=== PATIENT | female | born 1975 | race Caucasian/White ===

== ENCOUNTER 2020-12-09 09:47 | Outpatient (REF) | payer BC, SELFPAY ==
--- NOTE | ~2020-12-09 | MM_ITS ---
EXAMINATION: MM SCREENING DIGITAL BREAST TOMOSYNTHESIS, BILATERAL CLINICAL INFORMATION: Screening. Asymptomatic. The lifetime risk of breast cancer based on the Tyrer-Cuzick Model is 11%. COMPARISON: Mammography: 08/16/2018 (baseline) TECHNIQUE: Digital breast tomosynthesis is performed in both the craniocaudal and mediolateral oblique views along with computer-aided detection (CAD). Synthesized 2D images are generated from the tomosynthesis. FINDINGS: The breasts are heterogeneously dense, which may obscure small masses (ACR BI-RADS breast composition Category c). There are no significant masses, abnormal calcifications, or other abnormalities. There is intramammary node again noted posterior upper outer right breast. The bilateral axilla and skin contours are unremarkable. There are scattered punctate benign calcifications in the breasts. No significant changes. MM/MM tomosynthesis screening BI IMPRESSION: There are no significant changes from prior study. ASSESSMENT: BI-RADS 2: Benign RECOMMENDATION: Routine annual mammography screening. This patient's information was entered into a reminder system with a target due date for their next mammogram.
== END 2020-12-09 09:48 | disposition home or self-care (01) ==
LOC: HO.MAMMO 09:47
PROVIDERS: PCP Internal Medicine; Visit Provider Internal Medicine
DX: Z12.31 Encounter for screening mammogram for malignant neoplasm of breast (principal)
CPT/HCPCS: 77063; 77067

== ENCOUNTER 2021-03-07 10:42 | Outpatient (REF) | payer BC, SELFPAY ==
[2021-03-09 17:31] LABS: Rubella IgG Antibody 1.89 Index
== END 2021-03-07 10:43 | disposition home or self-care (01) ==
LOC: HO.HMGCLDS 10:42
PROVIDERS: PCP Internal Medicine; Visit Provider Internal Medicine
DX: Z01.84 Encounter for antibody response examination (principal)
CPT/HCPCS: 36415; 86735; 86762; 86765

== ENCOUNTER 2021-08-12 09:55 | Outpatient (REF) | payer BC, SELFPAY ==
[2021-08-12 10:43] LABS: COVID-19 Test Negative (Negative)
== END 2021-08-12 09:56 | disposition home or self-care (01) ==
LOC: HO.LAB 09:55
PROVIDERS: Visit Provider Internal Medicine
DX: Z20.822 Contact with and (suspected) exposure to COVID-19 (principal)
CPT/HCPCS: 36415; 87635; C9803

== ENCOUNTER → 2021-09-17 15:13 | Outpatient (BNVA) | payer BC, SELFPAY | PROVIDERS: PCP Internal Medicine; Visit Provider Surgery Vascular Surgery ==

== ENCOUNTER 2021-10-08 10:28 | Outpatient (REF) | payer BC, SELFPAY ==
--- NOTE | ~2021-10-08 | US_ITS ---
EXAMINATION: US LOWER EXTREMITY VENOUS (REFLUX EXAM), BILATERAL CLINICAL INDICATION: This a 46-year-old female with venous insufficiency and varicose veins. COMPARISON: None. TECHNIQUE: Color flow triplex imaging and compression Doppler was performed to evaluate both the deep and the superficial systems bilaterally. To evaluate the superficial system, the examination was performed in the upright position. Color-flow Doppler ultrasound and compression ultrasound were utilized. In addition, maneuvers were utilized to demonstrate reflux. FINDINGS: 1. DEEP VENOUS ULTRASOUND OF THE RIGHT LOWER EXTREMITY: Common Femoral Vein: Compressible, normal respiratory variation and augmented flow. Femoral vein: Compressible, normal color flow but with reflux of 892 ms. Popliteal Vein: Compressible, normal augmentation. Deep Reflux: There is reflux in the mid femoral vein. There is no evidence of a Cortez's cyst. 2. SUPERFICIAL ULTRASOUND WITH DOPPLER OF RIGHT LOWER EXTREMITY: GREAT SAPHENOUS VEIN: Saphenofemoral Junction: 0.5 cm. There is no reflux. Mid Thigh: 0.3 cm Above Knee: 0.3 cm. There is no reflux. Below Knee: 0.3 cm. The reflux time is 3400 ms. Mid Calf: 0.2 cm. There is no reflux. Ankle: 0.2 cm GSV REFLUX: There is only isolated reflux below the knee. There is no reflux at the saphenofemoral junction. DUPLICATED GREAT SAPHENOUS VEIN: None SMALL SAPHENOUS VEIN: Proximal: 0.2 cm Distal: 0.2 cm SSV REFLUX: No evidence of reflux. VEIN OF GIACOMINI: None Imaged. PERFORATORS: None Imaged VARICOSITIES: None Imaged 3. DEEP VENOUS ULTRASOUND OF THE LEFT LOWER EXTREMITY: Common Femoral Vein: Compressible, normal respiratory variation and augmented flow. Femoral Vein: Compressible, normal color flow and augmentation. Popliteal Vein: Compressible, normal augmentation. Deep Reflux: There is no evidence of reflux in the deep system in either the common femoral vein or the popliteal vein. There is no evidence of a Cortez's cyst. 4. SUPERFICIAL ULTRASOUND WITH DOPPLER OF LEFT LOWER EXTREMITY: GREAT SAPHENOUS VEIN: Saphenofemoral Junction: 0.5 cm. There is no reflux at the saphenofemoral junction. Mid Thigh: 0.3 cm. The reflux time is 1280 ms. Above Knee: 0.1 cm. There is no reflux. Below Knee: 0.1 cm Mid Calf: 0.1 cm Ankle: 0.1 cm GSV REFLUX: There is no reflux at the saphenofemoral junction. There is isolated reflux in the mid thigh. DUPLICATED GREAT SAPHENOUS VEIN: None SMALL SAPHENOUS VEIN: Proximal: 0.5 cm. There is no reflux at the junction. Distal: 0.3 cm. There is reflux of 3000 148 ms. SSV REFLUX: There is isolated distal reflux. There is not reflux at the junction. VEIN OF GIACOMINI: None Imaged. PERFORATORS: There are 0.2 cm mid calf perforators with a reflux time of 1620 ms. VARICOSITIES: There are 0.4 cm proximal thigh varicose veins with reflux time of 996 ms. There are 0.3 cm distal thigh varicose veins with greater than 3 seconds of reflux. US/US venous duplex LE BI IMPRESSION: 1. There is a patent right great saphenous vein without reflux at the saphenofemoral junction. There is isolated reflux at the knee. 2. There is a patent right small saphenous vein without reflux. 3. There is isolated reflux in the deep venous system in the mid right femoral vein. 4. There is a patent left great saphenous vein without reflux at the saphenofemoral junction. There is isolated reflux in the mid thigh but not below this level. 5. There is a patent left small saphenous vein without reflux at the junction. Reflux is seen in the mid calf and distal. 6. There are left thigh varicose veins measuring 0.4 cm and 0.3 cm with reflux.
== END 2021-10-08 10:29 | disposition home or self-care (01) ==
LOC: HO.US 10:28
PROVIDERS: Visit Provider Surgery Vascular Surgery
DX: I83.12 Varicose veins of left lower extremity with inflammation (principal)
CPT/HCPCS: 93970

== ENCOUNTER → 2021-10-13 15:43 | Outpatient (BNVA) | payer BC, SELFPAY | PROVIDERS: PCP Internal Medicine; Visit Provider Surgery Vascular Surgery ==

== ENCOUNTER → 2021-11-06 12:30 | Outpatient (BNVA) | payer BC, SELFPAY | PROVIDERS: PCP Internal Medicine; Visit Provider Surgery Vascular Surgery | DX: I83.12 Varicose veins of left lower extremity with inflammation (principal) | CPT/HCPCS: 36475 ==

== ENCOUNTER 2021-11-10 08:26 | Outpatient (REF) | payer BC, SELFPAY ==
--- NOTE | ~2021-11-10 | US_ITS ---
EXAMINATION: US VENOUS ULTRASOUND WITH DOPPLER LOWER EXTREMITY, LEFT CLINICAL INFORMATION: Left leg pain. COMPARISON: None. TECHNIQUE: Ultrasound of the deep veins is performed from the hip to the calf with compression sonography and color and pulse Doppler assessment. Spectral analysis with color-flow imaging is performed. FINDINGS: There is a thrombus visualized in the small superficial vein 5-6 cm in the calf region. The deep venous system including the left common femoral, superficial femoral, popliteal, posterior tibial and peroneal veins are widely patent. US/US venous duplex LE LT IMPRESSION: Clot visualized within the left small suprapatellar vein the calf region measuring 5 to 6 cm in length. There is no DVT in the left lower leg.
== END 2021-11-10 08:27 | disposition home or self-care (01) ==
LOC: HO.US 08:26
PROVIDERS: Visit Provider Surgery Vascular Surgery
DX: M79.605 Pain in left leg (principal)
CPT/HCPCS: 93971

== ENCOUNTER → 2021-11-19 15:43 | Outpatient (BNVA) | payer BC, SELFPAY | PROVIDERS: PCP Internal Medicine; Visit Provider Surgery Vascular Surgery ==

== ENCOUNTER 2022-06-26 15:42 | Emergency (ER) | payer BC, SELFPAY ==
[2022-06-26 15:51] VITALS: BP 138/82; PULSE 83; RESP 18; TEMP 37.1; O2SAT 96; BMI 23.6
--- NOTE | 2022-06-26 19:35 | ED.ASTHMA ---
HPI - Asthma General Chief Complaint: Asthma Stated Complaint: chest pain, difficulty breathing, asthma Time Seen by Provider: 06/26/22 18:59 Source: patient Mode of arrival: ambulatory Limitations: no limitations History of Present Illness HPI Narrative: 46-year-old female who presents emergency department for evaluation of fever, cough, chest pain, shortness of breath and dyspnea on exertion. Patient states that approximately 1 week prior she developed a fever of 100.3. She states that 2 days prior she developed a cough which is productive of thick dark sputum with no blood in the sputum. She also states that over the last 2 days she has been having a pressure-like sensation in her right chest. She points to her right anterior chest when she describes his pain, the pain is moderate intensity, the pain is improved with coughing and breathing. She states she does feel short of breath and has dyspnea on exertion. The patient has asthma and she states that her symptoms are relieved when she uses her albuterol and her Advair. Patient states she has had multiple episodes of pneumonia in the past whenever she has pneumonia she gets right-sided chest pain. She states that she has had intermittent fever, rhinorrhea, no sore throat, no nausea vomiting or diarrhea, no abdominal pain. She has felt fatigued. She denied myalgias arthralgias. She has had 3- COVID-19 test at home. She states she has received 3 COVID-19 Pfizer vaccinations. complaint: asthma attack Onset (ago): day(s) (2) Severity: moderate Context: recent URI Associated symptoms: productive cough, fever and chest pain Related Data Current Asthma Therapy: inhaled bronchodilator and inhaled steroid Home Medications Medication Instructions Recorded Confirmed cetirizine 10 mg tablet (Zyrtec) 10 mg PO DAILY PRN 09/14/21 09/14/21 Previous Rx's Medication Instructions Recorded albuterol sulfate 90 mcg/actuation 2 puff PO Q6H PRN shortness of 06/02/21 aerosol inhaler breath or wheezing #8.5 ea fluticasone 250 mcg-salmeterol 50 1 ea PO BID #180 caps 09/14/21 mcg/dose blistr powdr for inhalation (Advair Diskus) amoxicillin 500 mg capsule 1,000 mg PO TID 5 days #30 caps 06/26/22 azithromycin 250 mg tablet See Rx Instructions PO .COMPLEX #6 06/26/22 (Zithromax Z-Rolan) tabs prednisone 20 mg tablet 40 mg PO DAILY 5 days #10 tabs 06/26/22 Allergies Allergy/AdvReac Type Severity Reaction Status Date / Time Seasonal Allergies Allergy Mild mild Verified 11/19/21 15:45 Review of Systems Review of Systems: Yes all other systems are reviewed and are negative FORMERLY [facility] Past Medical History Medical History Mild intermittent asthma Varicose veins of both lower extremities with pain Surgical History No pertinent past surgical history Family History Family History Father Substance use disorder Social History Social History Housing: House Patient Tobacco Use Status: Never used Tobacco e-Cigarette/Vaping Use: Never Used Advance Directives: No Advance Directives Information Provided: Yes service: No Current occupational status: employed Physical Exam Vital Signs: Vital Signs: Last Vital Signs Temp 98.8 F 06/26/22 15:51 Pulse 83 06/26/22 15:51 Resp 18 06/26/22 15:51 BP 138/82 06/26/22 15:51 Pulse Ox 96 06/26/22 15:51 O2 Del Method 06/26/22 15:51 BMI result Body Mass Index 23.6 Const: General: cooperative and no acute distress Orientation/consciousness: oriented to person and oriented to place Limitations: no limitations HEENT: Head: Yes normal to inspection, Yes normocephalic and Yes atraumatic Ears: external ears normal General nose exam: Normal external nose present Face and sinus: Yes normal facial exam Mouth: Normal oral and palatal mucosa present Throat: Yes posterior oropharynx normal Eyes: General: appearance normal, both eyes and all related structures Pupils: Equal, round and reactive pupils present Neck: Neck: Yes normal visual inspection, Yes no lymphadenopathy, Yes trachea midline and Yes supple Chest: Chest palpation & inspection: normal inspection of the chest and tenderness (Right anterior chest wall, mild) Resp: Effort & Inspection: normal respiratory effort and able to speak in complete sentences Auscultation: wheezes (Wheezing at bases at end expiration) Cardio: Rate: regular rate Rhythm: regular rhythm Heart sounds: S1 normal heart sound present, S2 normal heart sound present and no murmurs GI: Inspection: Yes normal to inspection Palpation (GI): Soft to palpation, nontender and no guarding Auscultation: normal bowel sounds : General: Yes no CVA tenderness Back/Spine/Pelvis: Back: no CVA tenderness Skin: General skin exam: no rashes or lesions noted Neuro: General: oriented to person and oriented to place Cranial nerves: Yes CN's II-XII intact bilaterally and Yes Equal, round and reactive pupils present Cognition (Neuro): normal cognition Motor exam (neuro): 5/5 motor strength present throughout Extrem: General: Yes normal to inspection Psych: Appearance: grossly normal Speech and movement: Normal speech and movement present Affect: normal affect Attitude: cooperative Thought process: Normal thought process present Thought content: Normal thought content present Course Course Course Narrative: 46-year-old female who presents emergency department for evaluation of fever x1 week, productive cough x2 days, right-sided chest pain x2 days, shortness of breath, dyspnea exertion and fatigue. The patient does have a history of asthma and has been using her albuterol and Advair with some improvement her symptoms. Patient has had similar presentations in the past which she has had pneumonia. Patient's vital signs were normal lung exam did reveal right-sided chest wall tenderness and wheezing at the end of expiration. The patient's chest x-ray is consistent with a right middle lobe pneumonia. The patient will be treated with amoxicillin x5 days, Zithromax Z-Rolan and prednisone. I did tell the patient is important she follow up with a primary care doctor in 2 weeks to days sure that she is better and that she should return if her symptoms get worse. Discharge Plan Discharge Clinical Impression: Pneumonia, Asthma exacerbation Patient Disposition: Home, Self-Care Instructions: Pneumonia (ED), Asthma (ED) Additional Instructions: Your lung exam was normal with only some slight wheezing at the end of expiration. Your O2 saturation on room air was normal at 96%, this is reassuring. Your chest x-ray revealed a very subtle right middle lobe pneumonia. Take amoxicillin 500 mg pills, 2 pills every 8 hours for 5 days. Take Zithromax (azithromycin) Z-Rolan as prescribed. Day 1 take 2 pills, each day after that take 1 pill for total of 5 days. This medication states in your system for 7-10 days and continues to work despite only taking it for 5 days. Take prednisone 20 mg pills, 2 pills once a day for 5 days. While you are taking prednisone, do not take any NSAIDs (Motrin, Advil, ibuprofen, Aleve, naproxen). Follow-up with your doctor in 2 days. Please return to the emergency department if your symptoms get worse or if you develop any symptoms that are concerning to you. Prescriptions: New amoxicillin 500 mg capsule 1,000 mg PO TID 5 Days Qty: 30 0RF azithromycin [Zithromax Z-Rolan] 250 mg tablet See Rx Instructions .ROUTE .COMPLEX Qty: 6 0RF Rx Instructions: take 500 mg today (day 1), then 250 mg for 4 days (days 2-5) prednisone 20 mg tablet 40 mg PO DAILY 5 Days Qty: 10 0RF No Action albuterol sulfate 90 mcg/actuation HFA aerosol inhaler 2 puff PO Q6H PRN (Reason: shortness of breath or wheezing) Qty: 8.5 6RF cetirizine [Zyrtec] 10 mg tablet 10 mg PO DAILY PRN fluticasone propion-salmeterol [Advair Diskus] 250-50 mcg/dose blister with device 1 ea PO BID Qty: 180 2RF
== END 2022-06-26 20:09 | disposition home or self-care (01) ==
PROVIDERS: Emergency Provider Emergency Medicine Emergency Medical Services
DX: J18.9 Pneumonia, unspecified organism (principal); J45.901 Unspecified asthma with (acute) exacerbation
CPT/HCPCS: 71045; 99282; 99283

== ENCOUNTER 2022-07-09 12:31 | Outpatient (REF) | payer BC, SELFPAY ==
--- NOTE | ~2022-07-09 | XR_ITS ---
EXAMINATION: XR CHEST 2 VIEW CLINICAL INFORMATION: Cough COMPARISON: 06/26/2022 TECHNIQUE: PA and lateral views of the chest obtained. FINDINGS: There is new atelectasis or pneumonia in the medial right lower lobe, focally obscuring the right hemidiaphragm. The previously seen patchy opacities in the right midlung zone have improved. The left lung is clear. The cardiomediastinal silhouette is stable. XR/XR chest 2V IMPRESSION: 1. New right lower lobe atelectasis or pneumonia; follow-up is recommended to confirm clearing.
== END 2022-07-09 12:32 | disposition home or self-care (01) ==
LOC: HO.HMGCLDS 12:31
PROVIDERS: PCP Internal Medicine
DX: R05.9 Cough, unspecified (principal)
CPT/HCPCS: 71046

== ENCOUNTER 2022-07-14 09:02 | Outpatient (REF) | payer BC, SELFPAY ==
[2022-07-14 11:27] LABS: MANUAL DIFF FLAG NO
[2022-07-14 11:34] LABS: Basophils Absolute Auto 0.1 X10*3/uL (0.0-0.2); Basophils Percent Auto 1.2 % (0-2); Eosinophils Absolute Auto 0.5 X10*3/uL (0.0-0.4); Eosinophils Percent Auto 7.6 % (0-4); Hematocrit 36.4 % (37.0-47.0); Hemoglobin 11.6 g/dl (12.0-16.0); Imm Gran Abs Auto 0.03 X10*3/uL (0.00-0.03); Imm Gran Pct Auto 0.5 % (0.0-0.4); Lymphocytes Absolute Auto 1.3 X10*3/uL (1.2-4.9); Lymphocytes Percent Auto 20.5 % (20-40); Mean Corpuscular HGB Conc 31.9 g/dl (31.0-35.0); Mean Corpuscular Hemoglobin 27.4 pg (27.0-33.0); Mean Corpuscular Volume 85.8 fL (80.0-98.0); Mean Platelet Volume 10.4 fL (9.4-12.3); Monocytes Absolute Auto 0.5 X10*3/uL (0.1-1.2); Monocytes Percent Auto 7.9 % (2-11); Neutrophils Absolute Auto 4.1 x10*3/uL (2.0-8.3); Neutrophils Percent Auto 62.3 % (45-73); Platelet Count 390 X10*3/uL (160-400); Red Blood Count 4.24 X10*6/uL (4.20-5.50); Red Cell Distribution Width 14.1 % (11.0-16.0); White Blood Count 6.5 X10*3/uL (4.8-10.8)
== END 2022-07-14 09:03 | disposition home or self-care (01) ==
LOC: HO.HMGCLDS 09:02
PROVIDERS: PCP Internal Medicine; Visit Provider Internal Medicine
DX: R06.00 Dyspnea, unspecified (principal); R06.89 Other abnormalities of breathing; Z87.01 Personal history of pneumonia (recurrent)
CPT/HCPCS: 36415; 85025

== ENCOUNTER 2022-07-26 13:31 | Outpatient (REF) | payer BC, SELFPAY ==
--- NOTE | ~2022-07-26 | CT_ITS ---
EXAMINATION: HRCT CHEST WITHOUT CONTRAST CLINICAL INFORMATION: Dyspnea COMPARISON: None TECHNIQUE: Multidetector volumetric CT imaging of the chest was obtained noncontrast. Axial 1.5 mm slices were obtained. Sagittal and coronal reformations were obtained. Axial MIP images were also created and reviewed. This CT examination was performed using dose optimization techniques as appropriate, variously including the following: *Automated exposure control *Adjustment of mA and/or kV according to patient size (this includes techniques or standardized protocols for targeted exams where dose is matched to indication/reason for exam; i.e. extremities or head) *Use of iterative reconstruction technique TOTAL EXAM DLP: 120 mGy-cm. FINDINGS: LUNGS / PLEURA: Diffuse mild cylindrical bronchiectasis. Bronchial wall thickening and scattered endobronchial secretions present in the lower lungs bilaterally, associated with tree-in-bud nodular opacities. To a lesser extent, there are also tree-in-bud nodular opacities in the inferolateral aspect of the right upper lobe. There is an 8.8 x 6.6 mm nodule along the axial interstitium in the right lower lobe. There is an adjacent 11.1 x 7.1 mm nodule along the axial interstitium right lower lobe. There is also 9.7 x 7.1 mm subpleural nodule in the medial basal segment of the right lower lobe. There is a 3.4 mm nodule anteroinferior right upper lobe. No generalized subpleural reticulation, honeycombing, architectural distortion, traction bronchiectasis. No generalized groundglass disease. Central airways are patent. No pleural effusion or pneumothorax. MEDIASTINUM / SHAYAN: Mild cardiomegaly. No pericardial effusion.. Great vessels normal caliber. No lymphadenopathy. No significant coronary calcifications. Imaged thyroid gland unremarkable. CHEST WALL / AXILLA: Unremarkable. UPPER ABDOMEN: Included portions grossly unremarkable allowing for limitations in technique. OSSEOUS STRUCTURES: No acute or suspicious osseous abnormalities.. CT/CT chest wo con - High Res IMPRESSION: * No evidence of pulmonary fibrosis. * Diffuse mild cylindrical bronchiectasis with lower lung predominating bronchial thickening and endobronchial secretions. These are associated with tree-in-bud nodular opacities in the lower lobes bilaterally and to lesser extent right upper lobe compatible with an airway-based infectious process. * There are a a few associated nodular opacities in the right lower lobe favored to be infectious/inflammatory in nature, however follow-up will be required. The largest nodule measures 9.4 mm in diameter. Fleischner Society guidelines recommend a follow-up CT chest in 3 months.
== END 2022-07-26 13:32 | disposition home or self-care (01) ==
LOC: HO.CT 13:31
PROVIDERS: PCP Internal Medicine; Visit Provider Internal Medicine
DX: R06.00 Dyspnea, unspecified (principal); R06.89 Other abnormalities of breathing; R93.89 Abnormal findings on diagnostic imaging of other specified body structures; Z87.01 Personal history of pneumonia (recurrent)
CPT/HCPCS: 71250

== ENCOUNTER 2022-09-06 07:55 | Outpatient (REF) | payer BC, SELFPAY ==
--- NOTE | 2022-09-06 09:34 | PFT_ITS ---
FLOWS: FEV1 97% of predicted at 3.31 L. FVC 99% of predicted at 4.23 L. FEV1 to FVC ratio of 0.78. No bronchodilator response except in small to medium airways. LUNG VOLUMES: Total lung capacity 112% of predicted at 6.51 L. Residual volume 119% of predicted at 2.34 L. Slow vital capacity 108% of predicted at 4.17 L. Expiratory reserve volume 85% of predicted at 1.12 L. Diffusion capacity is normal. IMPRESSION: No obstructive or restrictive ventilatory defect. No bronchodilator response except in small to medium airways. Otherwise normal pulmonary function test. MD SUZAN Matias/MODL / [id number]
== END 2022-09-06 07:56 | disposition home or self-care (01) ==
LOC: HO.RESP 07:55
PROVIDERS: PCP Internal Medicine; Visit Provider Internal Medicine
DX: J45.20 Mild intermittent asthma, uncomplicated (principal); R06.09 Other forms of dyspnea; J47.9 Bronchiectasis, uncomplicated
CPT/HCPCS: 94060; 94727; 94729

== ENCOUNTER → 2022-09-23 13:56 | Outpatient (BNVA) | payer BC, SELFPAY | PROVIDERS: PCP Internal Medicine; Visit Provider Internal Medicine | DX: Z13.89 Encounter for screening for other disorder (principal) ==

== ENCOUNTER → 2023-01-24 15:02 | Outpatient (BNVA) | payer BC, SELFPAY | PROVIDERS: PCP Internal Medicine; Visit Provider Internal Medicine ==

== ENCOUNTER 2023-05-31 15:12 | Emergency (ER) | payer BC, SELFPAY ==
--- NOTE | ~2023-05-31 | CT_ITS ---
EXAMINATION: CT ANGIOGRAM OF THE CHEST WITH AND WITHOUT CONTRAST (CT PULMONARY ANGIOGRAM FOR PE) CLINICAL INFORMATION: Reason for Exam shortness of breath COMPARISON: Previous chest x-ray from earlier the same day and chest CT July 2022 TECHNIQUE: Prior to contrast administration, noncontrast localization images were obtained. Subsequently, multidetector volumetric imaging was performed from the thoracic inlet to below the diaphragms following the administration of 65 mL Omnipaque 350 intravenous contrast. No contrast reaction reported Sagittal, coronal, and MIP oblique sagittal reformatted images were obtained on the CT workstation, uploaded to PACS, and reviewed. This CT examination was performed using dose optimization techniques as appropriate, variously including the following: *Automated exposure control *Adjustment of mA and/or kV according to patient size (this includes techniques or standardized protocols for targeted exams where dose is matched to indication/reason for exam; i.e. extremities or head) *Use of iterative reconstruction technique Total exam dose-length product 217 mGy-cm FINDINGS: QUALITY OF STUDY/CONTRAST BOLUS: Satisfactory. PULMONARY ARTERIES: No pulmonary emboli. THORACIC AORTA: No aneurysm. LUNG: Bilateral lower lobe bronchiectasis. Bilateral lower lobe airspace disease and nodular opacities suggestive of pneumonia. This appears increased from July 2022 exam. Some of these changes may be chronic. PLEURA: No pleural effusion or pneumothorax. MEDIASTINUM: Normal heart size. No pericardial effusion. Small bilateral hilar and mediastinal lymph nodes. Prominent thymic tissue for age. This is similar-appearing to July 2022 exam.. No evidence of septal bowing or right heart strain. CORONARY ARTERY CALCIFICATION: None visualized on this study. CHEST WALL/AXILLA: No axillary or internal mammary lymphadenopathy. OSSEOUS STRUCTURES: No acute or suspicious osseous abnormality. UPPER ABDOMEN: Stable 2 cm low-attenuation liver lesion high in the right lobe probably representing a cyst. No reflux of contrast into the hepatic veins to suggest elevated right heart pressures. CT/CT angio chest PE protocol IMPRESSION: No evidence of pulmonary embolism. Bilateral lower lobe bronchiectasis, consolidation and nodular opacities probably representing pneumonia. Some of these changes may be chronic. Prominent thymic tissue for age similar to previous exam. VTE: negative
--- NOTE | ~2023-05-31 | XR_ITS ---
EXAMINATION: XR CHEST CLINICAL INFORMATION: Shortness of breath COMPARISON: 07/09/2022 TECHNIQUE: Frontal view of the chest was obtained. FINDINGS: Lungs are hyperaerated. Underlying fibrotic change noted with improved aeration now seen in the right midlung and right base. Acute infiltrates are not seen. Heart and pulmonary vessels are normal. No pleural effusion. XR/XR chest 1V IMPRESSION: Hyperaeration. No active disease.
--- NOTE | 2023-05-31 15:28 | ED.GENADULT ---
HPI - General Adult General Chief complaint: Dyspnea Stated complaint: SOB, fever Time Seen by Provider: 05/31/23 16:05 Source: patient, RN notes reviewed and old records reviewed Mode of arrival: ambulatory Limitations: no limitations History of Present Illness HPI narrative: 47-year-old female with past medical history significant for asthma, bronchiectasis presents for evaluation of shortness of breath. Patient reports shortness of breath for the last couple of days. She reports that she had a fever as high as 102 earlier today She did not take any Motrin or Tylenol. She reports productive cough as well. Denies any chest pain She reports that she called her [employer] office and was referred to the ER She follows with Dr. Fabian [facility] [employer] Home Medications Medication Instructions Recorded Confirmed loratadine 10 mg tablet (Claritin) 10 mg PO DAILY 07/09/22 07/09/22 Previous Rx's Medication Instructions Recorded albuterol sulfate 90 mcg/actuation 2 puff PO Q6H PRN shortness of 06/02/21 aerosol inhaler breath or wheezing #8.5 ea fluticasone 250 mcg-salmeterol 50 1 ea PO BID #180 caps 08/23/22 mcg/dose blistr powdr for inhalation (Advair Diskus) amoxicillin 875 mg-potassium 1 tab PO Q12H #14 tabs 05/31/23 clavulanate 125 mg tablet azithromycin 250 mg tablet See Rx Instructions PO .COMPLEX #6 05/31/23 tabs prednisone 20 mg tablet 40 mg (2 x 20 mg) PO DAILY #10 tabs 05/31/23 Allergies Allergy/AdvReac Type Severity Reaction Status Date / Time Seasonal Allergies Allergy Mild mild Verified 01/24/23 15:28 Review of Systems Constitutional: Constitutional: Reports body ache(s), Reports chills, Reports fever(s) and Denies headache(s) ENT: Denies headache(s) Cardiovascular: Cardiovascular: Denies chest pain and Reports dyspnea Respiratory: Respiratory: Reports chest congestion, Reports cough, Reports dyspnea and Reports wheezing Gastrointestinal: Gastrointestinal: Denies abdominal pain, Denies nausea and Denies vomiting Musculoskeletal: Musculoskeletal: Denies back pain Integumentary/Breasts: Skin/Breast: Denies rash Neurologic: Denies headache(s) Allergic/Immunologic: Allergic/Immunologic: Reports wheezing PMFSH Past Medical History Medical History (Updated 05/31/23 @ 16:29 by Ted Manjarrez) Allergic rhinitis Bronchial asthma Dyspnea on exertion Bronchiectasis Dyspnea and respiratory abnormalities Varicose veins of both lower extremities with pain Mild intermittent asthma Surgical History No pertinent past surgical history Family History Family History Father Substance use disorder Social History Social History Housing: House Patient Tobacco Use Status: Never used Tobacco Smoked in Last 30 Days: No e-Cigarette/Vaping Use: Never Used Use of substances other than those prescribed or required for medical reasons: No Advance Directives: No Advance Directives Information Provided: No service: No Current occupational status: employed Cognitive needs: No Hearing needs: No Vision needs: Yes Physical Exam ED Vital Signs: Vital Signs - 24 hr 05/31/23 15:29 05/31/23 16:06 05/31/23 18:00 Temperature 98.4 F Pulse Rate 122 H 113 H Respiratory Rate 24 H 26 H Blood Pressure 139/76 Pulse Oximetry 99 98 Oxygen Delivery Method Room Air Room Air BMI result Body Mass Index 21.8 Const General: healthy appearing, comfortable, no acute distress, alert and awake Nutritional Appearance: well nourished Orientation/consciousness: patient oriented x3 HENMT Head: Yes normocephalic and Yes atraumatic Eyes Eyelids: Yes eyelids normal Conjunctivae: conjunctivae normal Sclerae: sclerae normal Corneas: corneas normal Pupils: Equal, round and reactive pupils present EOM: EOMs intact bilaterally Neck Neck: Yes full ROM Resp Effort & Inspection: normal respiratory effort, able to speak in complete sentences and not labored Auscultation: not clear to auscultation bilaterally and wheezes lower bilaterally Cardio Rhythm: regular rhythm GI Inspection: No distended Palpation (GI): Soft to palpation, not firm, nontender, no guarding and not rigid Auscultation: normoactive bowel sounds Skin General skin exam: elasticity normal Neuro General: patient oriented x3 Cranial nerves: Yes Equal, round and reactive pupils present and Yes Bilaterally intact EOM present Cognition (Neuro): normal cognition Extrem Other: Moving all extremities well without any obvious deformities Course Course Course Narrative: RME: 47yo F w/PMHx bronchiectasis, asthma, c/o cough x2 weeks and SOB & fever Tmax 102 x today. denies taking antipyretic. Follows w/D. Judith, [place] anxious, +bibasilar rhonchi, tachycardic EKG, Labs, CXR, COVID testing & Bronch Protocol ordered Full HPI, ROS and PE to be performed by primary ED provider. Medications Administered Discontinued Medications Generic Name Dose Route Start Last Admin Trade Name Freq PRN Reason Stop Dose Admin Albuterol Sulfate 2.5 mg/ 5 mg 05/31/23 15:58 05/31/23 16:06 Albuterol Sulfate 2.5 mg INHALE 05/31/23 15:59 5 mg ONCE ONE Administration Sodium Chloride 1,000 mls @ 999 mls/hr 05/31/23 16:30 05/31/23 19:04 Ns IV 05/31/23 17:30 Infused .Q1H1M DEBBIE Infusion Iohexol 65 ml 05/31/23 18:01 05/31/23 18:02 Iohexol 350 Mg/Ml 100 Ml Infus..Btl IV 05/31/23 18:02 65 ml ONCE ONE Administration Methylprednisolone Sodium Succinate 125 mg 05/31/23 16:18 05/31/23 17:58 Methylprednisolone Sod Succ 125 Mg/2 Ml Vial IVPUSH 05/31/23 16:19 125 mg ONCE ONE Administration Medical Decision Making Medical Decision Making [facility] Narrative: 47-year-old female with history of bronchiectasis and asthma presents for evaluation of shortness of breath vitals a fever. At the time of my evaluation she has received a 5 mg albuterol treatment. She remains to have bibasilar rhonchi. Her heart rate is as high as 140 after the albuterol treatment. If she is afebrile on arrival her white count is 15.3k. Chest x-ray does not show any infiltrate. Given the reported fevers, tachycardia, tachypnea, white count with a CT angiography. Patient treated with IV fluids, SoluMedrol in addition to bronchodilators Differential Diagnosis Differential Diagnoses: The differential diagnosis associated with the presentation includes Pneumonia PE Acute asthma exacerbation Viral syndrome COVID-19 Admission/Observation Consideration of admission/observation: Escalation of care including admission/observation considered Lab Data [facility] Lab Attestation statement: I reviewed the patient's lab results. Leukocytosis to 15.3 K with a left shift it is possibly infectious etiology. No significant anemia, normal electrolytes, normal renal function. 05/31/23 15:54 05/31/23 15:54 Labs: Lab Results 05/31/23 Range/Units 15:54 WBC 15.3 H (4.8-10.8) X10*3/uL RBC 4.30 (4.20-5.50) X10*6/uL Hgb 12.0 (12.0-16.0) g/dl Hct 36.1 L (37.0-47.0) % MCV 84.0 (80.0-98.0) fL MCH 27.9 (27.0-33.0) pg MCHC 33.2 (31.0-35.0) g/dl RDW 13.2 (11.0-16.0) % Plt Count 317 (160-400) X10*3/uL MPV 9.5 (9.4-12.3) fL Immature Gran % (Auto) 0.3 (0.0-0.4) % Neut % (Auto) 87.2 H (45-73) % Lymph % (Auto) 5.5 L (20-40) % [place] % (Auto) 6.3 (2-11) % Eos % (Auto) 0.3 (0-4) % Baso % (Auto) 0.4 (0-2) % Lymph # (Auto) 0.8 L (1.2-4.9) X10*3/uL [place] # (Auto) 1.0 (0.1-1.2) X10*3/uL Eos # (Auto) 0.0 (0.0-0.4) X10*3/uL Baso # (Auto) 0.1 (0.0-0.2) X10*3/uL Abs Immat Gran (auto) 0.05 H (0.00-0.03) X10*3/uL Absolute Neuts (auto) 13.3 H (2.0-8.3) x10*3/uL Absolute Nucleated RBC 0.000 (0.0-0.012) X10*3/uL Nucleated RBC % (auto) 0.0 (0.0-0.2) /100WBC PT 11.9 (11.1-13.3) SEC INR 1.0 (0.9-1.1) Sodium 137 (135-145) mmol/L Potassium 4.2 (3.3-5.1) mmol/L Chloride 103 (96-108) mmol/L Carbon Dioxide 23 (22-29) mmol/L Anion Gap 15 (12-20) BUN 9 (9-16) mg/dL Creatinine 0.75 (0.5-1.4) mg/dL Estim Creat Clear Calc 97.9 Estimated GFR > 60 Random Glucose 110 (60-115) mg/dL Calcium 9.7 (8.4-10.2) mg/dL Magnesium 1.8 (1.6-2.6) mg/dL Total Bilirubin 0.8 (0.0-1.0) mg/dL Direct Bilirubin 0.3 (0.0-0.5) mg/dL AST 16 (5-31) U/L ALT 11 (0-31) U/L Alkaline Phosphatase 78 (39-117) U/L Troponin I High Sens < 2.7 (<3.5-17.0) ng/L B-Natriuretic Peptide 32 (<100) pg/mL Total Protein 7.5 (6.5-8.0) g/dL Albumin 4.7 (3.5-5.0) g/dL COVID-19 (LYNDA) Negative (Negative) COVID-19 Clin Com See Note Independent Interpretation I performed an independent interpretation of an: EKG and Plain X-Ray (No acute focal infiltrate) Interpretation: Sinus tachycardia rate 106. No ectopy or arrhythmia Radiology Impression Discussion of test interpretation with radiology: I have reviewed the radiologist's reading. (Hyper aeration, no active disease) Discharge Plan Discharge Clinical Impression: Dyspnea Patient Disposition: Home, Self-Care Instructions: Dyspnea (ED) Additional Instructions: Take both antibiotics as prescribed Take prednisone 40 mg daily for the next [address] scan showed pneumonia but no evidence of blood clots Continue to use your albuterol inhaler as directed Follow-up with your primary doctor and [employer] Prescriptions: New prednisone 20 mg tablet 40 mg PO DAILY Qty: 10 0RF azithromycin 250 mg tablet See Rx Instructions .ROUTE .COMPLEX Qty: 6 0RF Rx Instructions: For 250 mg dose pack: take 500 mg today (day 1), then 250 mg for 4 days (days 2-5) amoxicillin-pot clavulanate 875-125 mg tablet 1 tab PO Q12H Qty: 14 0RF No Action albuterol sulfate 90 mcg/actuation HFA aerosol inhaler 2 puff PO Q6H PRN (Reason: shortness of breath or wheezing) Qty: 8.5 6RF fluticasone propion-salmeterol [Advair Diskus] 250-50 mcg/dose blister with device 1 ea PO BID Qty: 180 2RF loratadine [Claritin] 10 mg tablet 10 mg PO DAILY
[2023-05-31 15:29] VITALS: BP 139/76; PULSE 122; RESP 24; TEMP 36.9; O2SAT 99; BMI 21.8
--- NOTE | 2023-05-31 15:29 | ECG_ITS ---
Test Reason : SOB Blood Pressure : / mmHG Vent. Rate : 106 BPM Atrial Rate : 106 BPM P-R Int : 116 ms QRS Dur : 080 ms QT Int : 328 ms P-R-T Axes : 046 092 027 degrees QTc Int : 435 ms Sinus tachycardia Rightward axis Nonspecific ST and T wave abnormality Abnormal ECG No previous ECGs available Referred By: Macy Allen Electronically Signed By:URIEL SHAW
[2023-05-31 16:00] LABS: MANUAL DIFF FLAG NO
[2023-05-31 16:01] LABS: Basophils Absolute Auto 0.1 X10*3/uL (0.0-0.2); Basophils Percent Auto 0.4 % (0-2); Eosinophils Percent Auto 0.3 % (0-4); Hematocrit 36.1 % (37.0-47.0); Imm Gran Abs Auto 0.05 X10*3/uL (0.00-0.03); Imm Gran Pct Auto 0.3 % (0.0-0.4); Lymphocytes Absolute Auto 0.8 X10*3/uL (1.2-4.9); Lymphocytes Percent Auto 5.5 % (20-40); Mean Corpuscular HGB Conc 33.2 g/dl (31.0-35.0); Mean Corpuscular Hemoglobin 27.9 pg (27.0-33.0); Mean Platelet Volume 9.5 fL (9.4-12.3); Monocytes Percent Auto 6.3 % (2-11); Neutrophils Absolute Auto 13.3 x10*3/uL (2.0-8.3); Neutrophils Percent Auto 87.2 % (45-73); Platelet Count 317 X10*3/uL (160-400); Red Cell Distribution Width 13.2 % (11.0-16.0); White Blood Count 15.3 X10*3/uL (4.8-10.8)
[2023-05-31 16:06] VITALS: PULSE 113; RESP 26; O2SAT 99
[2023-05-31 16:06] LABS: Prothrombin Time 11.9 SEC (11.1-13.3)
[2023-05-31] MEDS: Albuterol Sulfate 2.5 MG, Albuterol Sulfate (0.083%) 2.5 MG 5 MG INHALE (16:06)
[2023-05-31 16:16] LABS: Alanine Aminotransferase 11 U/L (0-31); Albumin Level 4.7 g/dL (3.5-5.0); Alkaline Phosphatase 78 U/L (39-117); Anion Gap 15 (12-20); Aspartate Amino Transferase 16 U/L (5-31); Bilirubin Direct 0.3 mg/dL (0.0-0.5); Bilirubin Total 0.8 mg/dL (0.0-1.0); Blood Urea Nitrogen 9 mg/dL (9-16); Calcium 9.7 mg/dL (8.4-10.2); Carbon Dioxide 23 mmol/L (22-29); Chloride 103 mmol/L (96-108); Creatinine Clr Calc Pharmacy 97.9; Estimated Glomerular Filt Rate > 60; Glucose Random 110 mg/dL (60-115); Magnesium 1.8 mg/dL (1.6-2.6); Potassium 4.2 mmol/L (3.3-5.1); Sodium 137 mmol/L (135-145); Total Protein 7.5 g/dL (6.5-8.0)
[2023-05-31 16:20] LABS: B Type Natriuretic Peptide 32 pg/mL (<100); COVID-19 Test Negative (Negative); IDNOW Serial# BCCEAD1C
[2023-05-31 16:25] LABS: Troponin-I High Sensitivity < 2.7 ng/L (<3.5-17.0)
[2023-05-31] MEDS: 0.9 % Sodium Chloride 1,000 ML 999 ML IV (17:58)
[2023-05-31] MEDS: methylPREDNISolone Sod Succ 125 MG/2 ML VIAL IVPUSH (17:58)
[2023-05-31 18:00] VITALS: O2SAT 98
[2023-05-31] MEDS: iohexoL 350 MG/ML 100 ML INFUS..BTL 65 ML IV (18:02)
== END 2023-05-31 19:46 | disposition home or self-care (01) ==
PROVIDERS: Physician Assistant; Emergency Provider Student in an Organized Health Care Education/Training Program; PCP Internal Medicine
DX: R06.02 Shortness of breath (principal); R00.0 Tachycardia, unspecified; Z20.822 Contact with and (suspected) exposure to COVID-19; Z79.899 Other long term (current) drug therapy
CPT/HCPCS: 71045; 71275; 80048; 80076; 83735; 83880; 84484; 85025; 85610; 87635; 93005; 94640; 96361; 96374; 99284; 99285; J2930; Q9967

== ENCOUNTER 2023-09-05 08:02 | Outpatient (AMB) | payer BC, SELFPAY ==
--- NOTE | 2023-09-05 08:06 | A.OFFPC_ITS ---
Vital Signs 09/05/23 08:10 Height 5 ft 9 in Weight 147 lb 6 oz BMI 21.8 BP 134/72 Blood Pressure Location Rt brachial Position Sitting Pulse 75 Pulse Source Pulse Oximeter Pulse Oximetry (%) 100 Oxygen Delivery Method Room Air Intake Visit Reasons: PE Intake Note: Pt is here for her Annual PE pt would like flu vaccine pt's mammo is in 10/12 pt would like a referral to an [facility] [employer] [facility] she is over due for a PAP Is last menstrual period known: Yes Last menstrual period: 08/21/23 Allergies Seasonal Allergies Allergy (Mild, Verified 09/05/23 08:52) mild Medication List - Last Reconciled 09/05/23 by Yarely Edwards MD albuterol sulfate 90 mcg/actuation 2 puffs PO Q6H PRN 30 days fluticasone propion-salmeterol 250-50 mcg/dose (Advair Diskus) 1 inh inhalation BID 30 days loratadine (Claritin) 10 mg PO DAILY Tobacco use date assessed: 09/05/23 Dental Screening Dental Screen Date: 09/05/23 Did you have a dental visit in the last 12 months?: Yes Did you have a dental problem in the last 6 months where you did not have access to dental care?: No Was dental information given to patient?: Patient has dentist HPI PE HPI Details 48-year-old lady with bronchiectasis, b ronchial asthma, who recently finished a course of amoxicillin for reactivation of her bronchiectasis, here today for her physical exam. She is due for her cervical cancer screening, last done in 2017 with normal findings. She has an appointment for a screening mammogram in September 2023 already scheduled. She has had COVID vaccines but d oes not want to get a booster, had her pneumonia vaccine and Tdap, and is due for her flu shot which will be given today. She has been feeling well with no complaints at present time except for some vaginal itching which she thinks might be a yeast infection that developed after recent intake of antibiotic. [facility] Medical History (Updated 10/14/23 @ 06:17 by Yarely Edwards MD) Polyp at cervical os Allergic rhinitis Bronchial asthma Dyspnea on exertion Bronchiectasis Dyspnea and respiratory abnormalities Varicose veins of both lower extremities with pain Mild intermittent asthma Surgical History No pertinent past surgical history Family History Father Substance use disorder Social History Housing: House Patient Tobacco Use Status: Never used Tobacco e-Cigarette/Vaping Use: Never Used service: No Current occupational status: employed Cognitive needs: No Hearing needs: No Vision needs: Yes Female Reproductive History Menstrual Date of last menstrual period: 08/21/23 control method: none Questionnaire PHQ-9 Over the last 2 weeks, how often have you been bothered by any of the following problems? 1. Little interest or pleasure in doing things: several days 2. Feeling down, depressed, or hopeless: not at all 3. Trouble falling or staying asleep, or sleeping too much: several days 4. Feeling tired or having little energy: several days 5. Poor appetite or overeating: not at all 6. Feeling bad about yourself - or that you are a failure or have let yourself or your family down: not at all 7. Trouble concentrating on things, such as reading the newspaper or watching television: not at all 8. Moving or speaking so slowly that other people could have noticed. Or the opposite - being so fidgety or restless that you have been moving around a lot more than usual: not at all 9. Thoughts that you would be better off or of hurting yourself in some way: not at all Total score: 3 Depression Screening Interpretation: Negative Depression Screening Done: Yes 37928 - PHQ-9 Billing: Yes Source: Developed by Drs. Rey Tam, Monique Posada, Chon Corrigan and colleagues, with an educational stefan from [employer]. Thrive Questionnaire Date Thrive assessed: 09/05/23 I am a: Patient What is your living situation today?: I have a steady place to live Within the past 12 months, did the food you bought not last and you didn't have the money to get more?: Never true Within the past 12 months, did you worry whether your food would run out before you got money to buy more?: Never true Do you have trouble paying for medicines?: No Do you have trouble getting transportation to medical appointments?: No Do you have trouble paying your heating and electricity bill?: No Do you have trouble taking care of your child, family member or friend?: No Do you have trouble with day-to-day activities such as bathing, preparing meals, shopping, managing finances, etc.?: No Are you currently unemployed and looking for a job?: No Are you interested in more education?: No Please select the resources that you would like help with: None AUDIT C Alcohol Use Questionnaire (AUDIT-C) 1. How often do you have a drink containing alcohol?: Monthly or less 2. How many drinks containing alcohol do you have on a typical day when you are drinking?: 1 or 2 3. How often do you have six or more drinks on one occasion?: Never Total Score: 1 DOYLE-7 AMB Questionnaire DOYLE-7 Date DOYLE - 7 assessed: 09/05/23 Feeling nervous, anxious, or on edge: 1 = Several days Not being able to stop or control worryin = Several days Worrying too much about different things: 1 = Several days Trouble relaxin = Several days Being so restless that it is hard to sit still: 0 = Not at all Becoming easily annoyed or irritable: 0 = Not at all Feeling afraid as if something awful might happen: 0 = Not at all Total DOYLE-7 score (0-4 normal; 5-9 mild; 10-14 moderate; 15-21 severe): 4 Source: Developed by Drs. Rey Tam, Monique Posada, Chon Corrigan and colleagues, with an educational stefan from [employer]. DOYLE-7 Assessment Billing DOYLE-7 Assessment Tool: DOYLE-7 Assessment 35660 ACT Questionnaire In the past 4 weeks, how much of the time did your asthma keep you from getting as much done at work, school or at home?: None of the time During the past 4 weeks, how often have you had shortness of breath?: Not at all During the past 4 weeks, how often did your asthma symptoms wake you up at night or earlier than usual in the morning?: Not at all During the past 4 weeks, how often have you had to use your rescue inhaler or nebulizer medication?: Not at all How would you rate your asthma control during the past 4 weeks?: Well controlled Score: 24 Review of Systems Const All systems reviewed & are unremarkable except as noted in HPI and below Eyes Reports no additional complaints ENT Reports nasal congestion (Mild intermittent) Card Reports no additional complaints Resp Reports as per HPI GI Reports no additional complaints Reports as per HPI Musc Reports no additional complaints Skin/Breast Reports system reviewed and no additional complaints, except as documented Neuro Reports no additional complaints Psych Reports no additional complaints Endo Reports no additional complaints Simone/Lymph Reports no additional complaints Aller/Immun Reports no additional complaints Physical exam (Primary Care) Vital Signs: Last Vital Signs Pulse 75 09/05/23 08:10 BP 134/72 09/05/23 08:10 Pulse Ox 100 09/05/23 08:10 Oxygen Delivery Method Room Air 09/05/23 08:10 BMI result Body Mass Index 21.8 Tobacco/Smoking Status: Tobacco use Status Tobacco use date assessed 09/05/23 09/05/23 08:16 Patient Tobacco Use Status Never used Tobacco 09/05/23 08:06 e-Cigarette/Vaping Use Never Used 09/05/23 08:06 PHQ-9: PHQ-9 Score PHQ-9: Total score 3 09/05/23 09:21 Depression Screening Interpretation: Negative Thrive Assessment: Date of Thrive Assessment Date Thrive assessed 09/05/23 09/05/23 08:23 Const General: no acute distress and alert Orientation/consciousness: patient oriented x3 HENMT Ears: external ears normal, TM's normal bilaterally and EAC's normal General nose exam: Normal external nose present, Normal nasal mucous membranes and turbinates present and No nasal discharge present Face and sinus: Yes sinuses nontender and Yes face symmetric Mouth: oropharynx normal and moist mucous membranes Neck Neck: Yes full ROM and Yes no lymphadenopathy Resp Other: Tight breath sounds bilaterally Effort & Inspection: able to speak in complete sentences Cardio Jugular venous distension: no JVD Rate: regular rate Rhythm: regular rhythm Heart sounds: S1 normal heart sound present and S2 normal heart sound present GI Inspection: Yes normal to inspection Palpation (GI): Soft to palpation, nontender, no guarding and no masses General: Yes bladder normal to palpation External Female Exam: normal external appearance and normal appearance of the urethra Speculum Exam - Vagina: normal palpation Speculum Exam - Cervix: normal palpation, Cervical os open, Abnormal cervical discharge present white and Cervical lesion present polyp Bimanual exam- vagina & uterus: normal bimanual exam, normal palpation, bladder normal to palpation and normal palpation Bimanual Exam- Adnexa, other: normal adnexae, no masses, normal and No adnexal tenderness OB/external & speculum: Cervical os open Back/Spine/Pelvis Back: No back tenderness Skin General skin exam: no rashes or lesions noted Neuro General: patient oriented x3, gait normal, moves all extremities, Normal light touch and pain sensation, no focal motor deficits and CN's II-XI intact bilaterally Cognition (Neuro): normal cognition Extrem General: Yes full ROM, Yes no joint enlargement, Yes no clubbing, cyanosis or edema, Yes no calf tenderness and Yes normal gait Psych Appearance: grossly normal and well kempt Mental Status: mental status grossly normal Speech and movement: Normal speech and movement present Affect: normal affect Attitude: cooperative Thought process: Normal thought process present Thought content: Normal thought content present Office Procedures Flu Questionnaire Does the patient have a severe egg allergy?: No Does the patient have severe life threatening allergies?: No Does the patient have a fever or illness today?: No Has the patient ever had Guillain-Swaledale Syndrome?: No Has the patient ever had any past reaction to a flu shot?: No Immunizations flu vacc [id number] 6mos up(PF) 60 mcg(15 mcgx4)/0.5 mL IM syringe Performing Provider: Yarely Edwards MD Performing Location: [facility] Administered by: Dot Ortiz CMA on 09/05/23 09:08 Dose Route Admin Location Dispensed Lot Number Expiration Date [facility] Retail Buyer 0.5 mL IM Left Deltoid 0.5 mL [id number] 03/18/24 65325-402-21 [employer] VIS Given Date VIS Provided VIS Publication Date 09/05/23 Single Vaccine 21 Eligibility Eligibility Date Funding Source Not [facility] Eligible 09/05/23 Private Assessment and Plan Assessment & Plan (1) Annual visit for general adult medical examination with abnormal findings: Code(s): Z00.01 - Encounter for general adult medical examination with abnormal findings Plan: Fasting labs ordered, has appointment for screening mammogram next month. Pap done today. Goes to [facility] for her routine eye exam and sees a dentist every 6 months for prophylaxis. Declined getting COVID booster, flu vaccine given today up-to-date with her pneumococcal vaccine and Tdap. Cologuard testing ordered for colon cancer screening. (2) Polyp at cervical os: Code(s): N84.1 - Polyp of cervix uteri Plan: OBGYN consult obtain (3) Allergic rhinitis: Comment: SHE HAS SEASONAL AND ENVIRONMENTAL ALLERGIES, AND SHE DOES GET NASAL CONGESTION WITH HIS POSTNASAL DRIP OFF AND ON. SHE CAN NOT CONTROL THE SYMPTOMS WITH CLARITIN 10 MG DAILY NEEDED. Code(s): J30.9 - Allergic rhinitis, unspecified Qualifiers: Allergic rhinitis trigger: unspecified Allergic rhinitis seasonality: unspecified Qualified Code(s): J30.9 - Allergic rhinitis, unspecified Plan: Takes loratadine 10 mg daily (4) Bronchial asthma: Code(s): J45.909 - Unspecified asthma, uncomplicated Qualifiers: Asthma complication type: uncomplicated Asthma persistence: intermittent Asthma severity: mild Qualified Code(s): J45.20 - Mild intermittent asthma, uncomplicated Plan: Currently on Advair and rescue inhaler with albuterol , up-to-date with her pneumococcal vaccine, flu vaccine given today, followed by Pulmonary (5) Bronchiectasis: Comment: SHE DOES HAVE DIFFUSE CYLINDERICAL BRONCHIECTASIS, PREDOMINANTLY IN THE LOWER LOBES. THIS SEEMS TO BE RELATED TO HER CHRONIC BRONCHIAL ASTHMA AND RECURRENT RESPIRATORY INFECTIONS. TX: ADVISED TO DRINK PLENTY OF FLUIDS, USE VAPORIZER/HUMIDIFIER IN THE HOUSE DURING WINTER MONTHS. ALSO USE MUCINEX 600 MG B.I.D P.R.N.. Code(s): J47.9 - Bronchiectasis, uncomplicated Qualifiers: Bronchiectasis type: uncomplicated Qualified Code(s): J47.9 - Bronchiectasis, uncomplicated Plan: Followed by Pulmonary (6) Vaginal candidiasis: Code(s): B37.31 - Acute candidiasis of vulva and vagina Plan: Rx sent for fluconazole 150 mg per tablet to take 1 tablet initially and then may repeat another dose after 3 days if no improvement. Orders: Orders Alanine Aminotransferase 09/05/23 Z00.01 - Encounter for general adult medical examination with abnormal findings, Z12.4 - Encounter for screening for malignant neoplasm of cervix Aspartate Amino Transferase 09/05/23 Z00.01 - Encounter for general adult medical examination with abnormal findings, Z12.4 - Encounter for screening for malignant neoplasm of cervix Glucose Fasting 09/05/23 Z00.01 - Encounter for general adult medical examination with abnormal findings, Z12.4 - Encounter for screening for malignant neoplasm of cervix Pap Smear 09/05/23 Z00.01 - Encounter for general adult medical examination with abnormal findings, Z12.4 - Encounter for screening for malignant neoplasm of cervix Influenza [id number] Immunization 09/05/23 Z23 - Encounter for immunization Complete Blood Count Auto Diff 09/05/23 Z00.01 - Encounter for general adult medical examination with abnormal findings Lipid Panel 09/05/23 Z00.01 - Encounter for general adult medical examination with abnormal findings, Z12.4 - Encounter for screening for malignant neoplasm of cervix Vitamin D 25-OH Total 09/05/23 Z00.01 - Encounter for general adult medical examination with abnormal findings, Z12.4 - Encounter for screening for malignant neoplasm of cervix Referrals [facility] [facility] Referral N84.1 - Polyp of cervix uteri Cologuard Test Z12.11 - Encounter for screening for malignant neoplasm of colon, Z12.12 - Encounter for screening for malignant neoplasm of rectum Medications: New fluconazole may repeat second dose 72 hrs after first dose if symptoms persist 150 mg PO Q3D PRN 2 tabs 0RF yeast infection 2 doses Coding Level of Care Code Est Pt Prev Care 40-64y(53207) Diagnoses Annual visit for general adult medical examination with abnormal findings Z0 0.01 Polyp at cervical os N84.1 Allergic rhinitis, unspecified seasonality, unspecified trigger J30.9 Allergic rhinitis trigger: unspecified Allergic rhinitis seasonality: unspecified Mild intermittent asthma without complication J45.20 Asthma complication type: uncomplicated Asthma persistence: intermittent Asthma severity: mild Bronchiectasis without complication J47.9 Bronchiectasis type: uncomplicated Vaginal candidiasis B37.31 Additional Codes DOYLE-7 Assessment Billing - DOYLE-7 Assessment Tool: DOYLE-7 Assessment 94245 ([id number])
[2023-09-05 08:10] VITALS: BP 134/72; PULSE 75; O2SAT 100; BMI 21.8
== END 2023-09-05 10:11 | disposition home or self-care (01) ==
PROVIDERS: PCP Internal Medicine; Visit Provider Internal Medicine
DX: Z23 Encounter for immunization (principal)
CPT/HCPCS: 90471; 90686; 99213; 99396

== ENCOUNTER 2023-09-05 10:44 | Outpatient (REF) | payer BC, SELFPAY ==
[2023-09-08 23:07] LABS: HPV mRNA E6/E7 rflx Not Detected (Not Detected)
== END 2023-09-05 10:45 | disposition home or self-care (01) ==
LOC: HO.LAB 10:44
PROVIDERS: Visit Provider Internal Medicine
DX: Z12.4 Encounter for screening for malignant neoplasm of cervix (principal); Z11.51 Encounter for screening for human papillomavirus (HPV)
CPT/HCPCS: 87624; 88142

== ENCOUNTER 2023-10-10 15:56 | Outpatient (REF) | payer BC, SELFPAY ==
--- NOTE | ~2023-10-10 | MM_ITS ---
EXAMINATION: MM SCREENING DIGITAL BREAST TOMOSYNTHESIS, BILATERAL CLINICAL INFORMATION: Screening. Asymptomatic. COMPARISON: Mammography: This study is compared with prior exams dating back to 2018. TECHNIQUE: Digital breast tomosynthesis is performed in both the craniocaudal and mediolateral oblique views along with computer-aided detection (CAD). Synthesized 2D images are generated from the tomosynthesis. FINDINGS: The breasts are extremely dense, which lowers the sensitivity of mammography (ACR BI-RADS breast composition Category d). Grouped amorphous calcifications are present in the upper outer quadrant of the left breast. These warrant additional mammographic imaging with magnification. In the right breast, there are no significant masses, abnormal calcifications, or other abnormalities. MM/MM tomosynthesis screening BI IMPRESSION: Calcifications in the left breast warrants additional mammographic imaging magnification. No mammographic signs of malignancy right breast. ASSESSMENT: BI-RADS BI-RADS 0 - Incomplete: Needs additional Imaging. RECOMMENDATION: Additional views of the left breast Radiology department staff will contact the patient for additional imaging. Additional Imaging required This examination should not preclude the clinical evaluation of a suspicious palpable abnormality. This patient's information was entered into a reminder system with a target due date for their next mammogram.
== END 2023-10-10 15:57 | disposition home or self-care (01) ==
LOC: HO.MAMMO 15:56
PROVIDERS: PCP Internal Medicine; Visit Provider Internal Medicine
DX: Z12.31 Encounter for screening mammogram for malignant neoplasm of breast (principal)
CPT/HCPCS: 77063; 77067

== ENCOUNTER → 2023-10-10 16:00 | Outpatient (BNV) | payer BC, SELFPAY | PROVIDERS: PCP Internal Medicine; Visit Provider Radiology Diagnostic Radiology | DX: Z12.31 Encounter for screening mammogram for malignant neoplasm of breast (principal) | CPT/HCPCS: 77063; 77067 ==

== ENCOUNTER 2023-10-22 10:04 | Outpatient (REF) | payer BC, SELFPAY ==
[2023-10-22 11:54] LABS: MANUAL DIFF FLAG NO
[2023-10-22 11:56] LABS: Basophils Absolute Auto 0.1 X10*3/uL (0.0-0.2); Basophils Percent Auto 0.8 % (0-2); Eosinophils Absolute Auto 0.4 X10*3/uL (0.0-0.4); Eosinophils Percent Auto 4.9 % (0-4); Hematocrit 36.8 % (37.0-47.0); Imm Gran Abs Auto 0.03 X10*3/uL (0.00-0.03); Imm Gran Pct Auto 0.3 % (0.0-0.4); Lymphocytes Absolute Auto 1.3 X10*3/uL (1.2-4.9); Lymphocytes Percent Auto 14.9 % (20-40); Mean Corpuscular HGB Conc 32.6 g/dl (31.0-35.0); Mean Corpuscular Hemoglobin 27.6 pg (27.0-33.0); Mean Corpuscular Volume 84.6 fL (80.0-98.0); Mean Platelet Volume 10.2 fL (9.4-12.3); Monocytes Absolute Auto 0.7 X10*3/uL (0.1-1.2); Monocytes Percent Auto 8.4 % (2-11); Neutrophils Absolute Auto 6.2 x10*3/uL (2.0-8.3); Neutrophils Percent Auto 70.7 % (45-73); Platelet Count 335 X10*3/uL (160-400); Red Blood Count 4.35 X10*6/uL (4.20-5.50); Red Cell Distribution Width 13.4 % (11.0-16.0); White Blood Count 8.8 X10*3/uL (4.8-10.8)
[2023-10-22 12:32] LABS: Alanine Aminotransferase 15 U/L (0-31); Aspartate Amino Transferase 17 U/L (5-31); Cholesterol 138 mg/dL (<200); Glucose Fasting 95 mg/dL (60-99); HDL Cholesterol 59 mg/dL (>40); LDL Cholesterol Calculated 73 mg/dL (<100); Triglycerides 34 mg/dL (<150)
[2023-10-22 12:38] LABS: Vitamin D 25-OH Total 8.6 ng/mL (>30)
== END 2023-10-22 10:05 | disposition home or self-care (01) ==
LOC: HO.HMGCLDS 10:04
PROVIDERS: PCP Internal Medicine; Visit Provider Internal Medicine
DX: Z00.01 Encounter for general adult medical examination with abnormal findings (principal)
CPT/HCPCS: 36415; 80061; 82306; 82947; 84450; 84460; 85025

== ENCOUNTER 2023-10-24 07:33 | Outpatient (REF) | payer BC, SELFPAY | END 2023-10-24 07:34 | disposition home or self-care (01) | LOC: HO.LNP 07:33 | PROVIDERS: PCP Internal Medicine; Visit Provider Obstetrics & Gynecology | DX: N84.1 Polyp of cervix uteri (principal) | CPT/HCPCS: 57500; 81025; 88305 ==

== ENCOUNTER 2023-10-24 07:33 | Outpatient (AMB) | payer BC, SELFPAY ==
--- NOTE | 2023-10-24 07:35 | A.OFFVIS_ITS ---
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 The patient has regular menstrual cycles no postcoital bleeding or any other concerns. Last co testing was done in 09/10 was negative [facility] Medical History Polyp at cervical os Allergic rhinitis Bronchial asthma Dyspnea on exertion Bronchiectasis Dyspnea and respiratory abnormalities Varicose veins of both lower extremities with pain Mild intermittent asthma Surgical History No pertinent past surgical history Family History Father Substance use disorder Social History Housing: House Patient Tobacco Use Status: Never used Tobacco e-Cigarette/Vaping Use: Never Used service: No Current occupational status: employed Cognitive needs: No Hearing needs: No Vision needs: Yes Female Reproductive History Menstrual Date of last menstrual period: 10/10/23 Review of Systems Const All systems reviewed & are unremarkable except as noted in HPI and below Physical Exam Vital Signs: Last Vital Signs BP 120/72 10/24/23 07:36 BMI result Body Mass Index 21.5 General: Yes no CVA tenderness External Female Exam: normal external appearance and normal appearance of the urethra Speculum Exam - Vagina: normal appearance of the vagina, normal palpation, no lesions and no masses Speculum Exam - Cervix: normal appearance of the cervix, normal palpation, no lesions, no masses, nontender and Other cervical findings present (2 cm endocervical polyp) Bimanual exam- vagina & uterus: normal bimanual exam, normal palpation, uterine size normal, normal palpation, uterine shape normal, No Cervical tenderness present and non-tender Bimanual Exam- Adnexa, other: normal adnexae Back/Spine/Pelvis Back: no CVA tenderness Office Procedures BAG BUILDER Biopsy Before the procedure was started, discussed with the patient the procedure technique, alternatives & all the risks associated with the procedure including but not limited to: bleeding , infection, uterine perforation, injury to bladder, vessels, bowels, possible need for transfusion with all its risks, and others. All questions were answered, the patient verbalized understanding and signed the consent. Urine test done in the office was negative Using a long Danette Clamp the endocervical polyp was grasped and twisted around till it came off, hemostasis was secured using pressure. The patient tolerated the procedure well. Instructions were given to the patient to call if bleeding, temp>100.4 occur. The patient verbalized understanding and agreed with the plan. This note was generated with a voice recognition program. Some errors may have been overlooked during the review of this note. Sometimes these errors may affect the content or meaning of a given sentence. 15250-Vjyuhm of Cervix Procedure code (CPT) selection complete Assessment & Plan Assessment & Plan (1) Endocervical polyp: Code(s): N84.1 - Polyp of cervix uteri Plan: Discussed with the patient the finding on pelvic exam showing a 2 cm endocervical polyp, recommended polypectomy, procedure done, see note. Orders: Orders Surgical Today N84.1 - Polyp of cervix uteri AMB BAG BUILDER Biopsy Today N84.1 - Polyp of cervix uteri Coding Level of Care Code New Pt Level 3 (71046) Procedure Only Diagnoses Endocervical polyp N84.1 CPT Codes BAG BUILDER Biopsy - CPT: 70633-Jagjwn of Cervix ([id number])
[2023-10-24 07:36] VITALS: BP 120/72; BMI 21.5
== END 2023-10-24 07:55 | disposition home or self-care (01) ==
PROVIDERS: PCP Internal Medicine; Visit Provider Obstetrics & Gynecology
DX: N84.1 Polyp of cervix uteri (principal); Z32.02 Encounter for pregnancy test, result negative
CPT/HCPCS: 57500; 99203

== ENCOUNTER 2023-11-23 14:56 | Outpatient (REF) | payer BC, SELFPAY ==
--- NOTE | ~2023-11-23 | MM_ITS ---
EXAMINATION: MM DIAGNOSTIC DIGITAL MAMMOGRAPHY, LEFT CLINICAL INFORMATION: Diagnostic follow-up for amorphous loosely grouped calcifications in the left breast upper outer quadrant. COMPARISON: Mammography: 10/10/2023, 12/09/2020, 08/16/2018. TECHNIQUE: Digital mammography is performed in the following views: 2-D spot magnification left CC views x4, and ML views x2. FINDINGS: The breasts are extremely dense, which lowers the sensitivity of mammography (ACR BI-RADS breast composition Category d). On the 90 degree mediolateral projection, after 2 minutes the majority of the amorphous calcifications in the upper outer left breast appear to layer within microcysts, consistent with milk of calcium. These have a notably amorphous appearance on the CC view in the lateral breasts. They have minimally increased in number since 2020 exam, however have a classically benign appearance. No further follow-up is recommended. Results are provided to the patient at time of visit by the technologist. MM/MM added views LT IMPRESSION: No findings suspicious for malignancy in the left breast. Loosely grouped layering and amorphous calcifications in the upper outer left breast, minimally increased from 2020, consistent with milk of calcium. These are benign and no further follow-up is recommended. Recommend this patient return to routine annual screening. ASSESSMENT: BI-RADS BI-RADS 2 - Benign Findings RECOMMENDATION: 1 year F/U This patient's information was entered into a reminder system with a target due date for their next mammogram.
== END 2023-11-23 14:57 | disposition home or self-care (01) ==
LOC: HO.MAMMO 14:56
PROVIDERS: PCP Internal Medicine; Visit Provider Internal Medicine
DX: R92.1 Mammographic calcification found on diagnostic imaging of breast (principal)
CPT/HCPCS: 77065

== ENCOUNTER → 2023-11-23 15:00 | Outpatient (BNV) | payer BC, SELFPAY | PROVIDERS: PCP Internal Medicine; Visit Provider Radiology Diagnostic Radiology | DX: R92.1 Mammographic calcification found on diagnostic imaging of breast (principal); R92.342 Mammographic extreme density, left breast | CPT/HCPCS: 77065 ==

== ENCOUNTER 2023-11-30 07:34 | Outpatient (AMB) | payer BC, SELFPAY ==
--- NOTE | 2023-11-30 07:36 | MHC.OFFVIS ---
Intake Vital Signs 11/30/23 07:37 Height 5 ft 9 in Weight 145 lb 8.081 oz BMI 21.5 BP 110/66 Intake Visit Reasons: biopsy results Allergies Seasonal Allergies Allergy (Mild, Verified 10/24/23 07:41) mild HPI HPI Comments History of Present Illness Details Presenting for follow-up post polypectomy, doing well with no complaints. The pathology showed the following: Cervical polyp, resection: Benign endocervical polyp with inflammation and squamous metaplasia. [facility] Medical History Polyp at cervical os Allergic rhinitis Bronchial asthma Dyspnea on exertion Bronchiectasis Dyspnea and respiratory abnormalities Varicose veins of both lower extremities with pain Mild intermittent asthma Surgical History No pertinent past surgical history Family History Father Substance use disorder Social History Housing: House Patient Tobacco Use Status: Never used Tobacco e-Cigarette/Vaping Use: Never Used service: No Current occupational status: employed Cognitive needs: No Hearing needs: No Vision needs: Yes Review of Systems Const All systems reviewed & are unremarkable except as noted in HPI and below Reports as per HPI and Reports no additional complaints GI Reports no additional complaints Reports no additional complaints Physical Exam Vital Signs: Last Vital Signs BP 110/66 11/30/23 07:37 BMI result Body Mass Index 21.5 Assessment & Plan Assessment & Plan (1) Endocervical polyp: Code(s): N84.1 - Polyp of cervix uteri Plan: Discussed with the patient the results the pathology. Instructions given to patient to call in case of abnormal uterine bleeding, pelvic pain or any other concerns. All questions answered, the patient verbalized understanding Coding Level of Care Code Est Pt Level 3 (27448) Diagnoses Endocervical polyp N84.1
[2023-11-30 07:37] VITALS: BP 110/66; BMI 21.5
== END 2023-11-30 07:45 | disposition home or self-care (01) ==
LOC: HO.HWS 07:34
PROVIDERS: PCP Internal Medicine; Visit Provider Obstetrics & Gynecology
DX: N84.1 Polyp of cervix uteri (principal)
CPT/HCPCS: 99213

== ENCOUNTER → 2023-11-30 07:34 | Outpatient (BNVA) | payer BC, SELFPAY | PROVIDERS: PCP Internal Medicine; Visit Provider Obstetrics & Gynecology ==

== ENCOUNTER 2023-12-02 20:36 | Emergency (ER) | payer BC, SELFPAY ==
--- NOTE | ~2023-12-02 | CT_ITS ---
EXAMINATION: CT ABDOMEN AND PELVIS WITH CONTRAST CLINICAL INFORMATION: Right lower quadrant pain. COMPARISON: Correlation made with CT chest performed 05/31/2023. TECHNIQUE: Multidetector volumetric images were obtained from the superior aspect of the liver through the pubic symphysis following administration 85 mL of Omnipaque 350 intravenous contrast. Sagittal and coronal reformatted images were obtained on the technologist's workstation. Oral contrast: No This CT examination was performed using dose optimization techniques as appropriate, variously including the following: *Automated exposure control *Adjustment of mA and/or kV according to patient size (this includes techniques or standardized protocols for targeted exams where dose is matched to indication/reason for exam; i.e. extremities or head) *Use of iterative reconstruction technique DLP: 437 mGy-cm FINDINGS: The study is limited due to lack of oral contrast as well as minimal intra-abdominal fat. LUNG BASES: There is atelectatic change as well as mild bronchiectatic change at the lung bases. LIVER, GALLBLADDER, AND BILIARY TREE: There is a stable 2 cm cyst at the dome of the liver. There is no intrahepatic biliary duct dilatation. The gallbladder is unremarkable with no evidence of radiopaque gallstones, gallbladder wall thickening, or obvious pericholecystic inflammatory changes. PANCREAS: Unremarkable. SPLEEN: Unremarkable. ADRENAL GLANDS: Unremarkable. KIDNEYS AND URETERS: The kidneys are normal in size, shape, and attenuation. No hydronephrosis, hydroureter, or calculi seen. No perinephric stranding. BLADDER: Unremarkable. GASTROINTESTINAL TRACT: There is significant retained cecal stool the appendix is not confidently seen as a separate structure. There appears to be mild rectal thickening. ABDOMINAL WALL: No significant hernia is appreciated. LYMPH NODES: Normal. VASCULAR: Unremarkable. PELVIC VISCERA: Unremarkable. OSSEOUS STRUCTURES: There is diffuse thoracolumbar disc degenerative change. CT/CT abdomen pelvis w IV con IMPRESSION: 1. Limited study due to lack of oral contrast as well as minimal intra-abdominal fat. 2. There is significant retained cecal stool. The appendix is not confidently seen as a separate structure. 3. There appears to be mild rectal thickening may be secondary to underdistention versus a mild proctitis.. Fleischner guidelines were followed.
[2023-12-02 21:54] VITALS: BP 129/51; PULSE 58; RESP 20; TEMP 36.7; O2SAT 100; BMI 22.3
[2023-12-02] MEDS: Ondansetron ODT 4 MG TAB.RAPDIS TRANSLINGU (22:01)
[2023-12-02 22:17] LABS: MANUAL DIFF FLAG NO
[2023-12-02 22:20] LABS: Basophils Absolute Auto 0.1 X10*3/uL (0.0-0.2); Basophils Percent Auto 0.6 % (0-2); Eosinophils Absolute Auto 0.1 X10*3/uL (0.0-0.4); Eosinophils Percent Auto 1.2 % (0-4); Hematocrit 37.6 % (37.0-47.0); Hemoglobin 12.4 g/dl (12.0-16.0); Imm Gran Abs Auto 0.02 X10*3/uL (0.00-0.03); Imm Gran Pct Auto 0.2 % (0.0-0.4); Lymphocytes Absolute Auto 0.8 X10*3/uL (1.2-4.9); Lymphocytes Percent Auto 9.9 % (20-40); Mean Corpuscular Hemoglobin 27.7 pg (27.0-33.0); Mean Corpuscular Volume 83.9 fL (80.0-98.0); Mean Platelet Volume 9.9 fL (9.4-12.3); Monocytes Absolute Auto 0.3 X10*3/uL (0.1-1.2); Monocytes Percent Auto 4.1 % (2-11); Platelet Count 227 X10*3/uL (160-400); Red Blood Count 4.48 X10*6/uL (4.20-5.50); Red Cell Distribution Width 14.2 % (11.0-16.0); White Blood Count 8.4 X10*3/uL (4.8-10.8)
[2023-12-02 22:25] LABS: Appearance Urine Clear; Color Urine Yellow; Glucose Urine UA Negative (Negative); Leukocyte Esterase Urine Negative (Negative); Nitrite Urine Negative (Negative); PH >= 9.0 (5.0-9.0); Specific Gravity - Urine 1.015 (1.005-1.025); Urine Blood Negative (Negative); Urine Ketones 40 mg/dL (Negative); Urine Protein Negative (Neg-Trace)
[2023-12-02 22:28] LABS: Bacteria Urine None Seen (None Seen); Hyaline Casts Urine 0-2 /LPF (0-2); RBC Urine 0-2 /HPF (0-2); Squamous Epithelial Cell Urine 0-2 /HPF (0-2); WBC Urine 0-5 /HPF (0-5)
[2023-12-02 22:33] LABS: Alanine Aminotransferase 17 U/L (0-31); Albumin Level 4.6 g/dL (3.5-5.0); Alkaline Phosphatase 66 U/L (39-117); Anion Gap 13 (12-20); Aspartate Amino Transferase 23 U/L (5-31); Bilirubin Total 0.7 mg/dL (0.0-1.0); Blood Urea Nitrogen 12 mg/dL (9-16); Calcium 9.9 mg/dL (8.4-10.2); Carbon Dioxide 25 mmol/L (22-29); Chloride 105 mmol/L (96-108); Creatinine Clr Calc Pharmacy 90.8; Estimated Glomerular Filt Rate > 60; Glucose Random 136 mg/dL (60-115); Potassium 4.7 mmol/L (3.3-5.1); Sodium 138 mmol/L (135-145); Total Protein 7.7 g/dL (6.5-8.0)
[2023-12-03 01:39] VITALS: BP 116/43; PULSE 55; RESP 17; TEMP 36.8; O2SAT 100
[2023-12-03] MEDS: diphenhydrAMINE HCL 50 MG/ML VIAL 25 MG IVPUSH (02:30)
[2023-12-03] MEDS: Ketorolac Tromethamine 15 MG/ML VIAL IVPUSH (02:30)
[2023-12-03] MEDS: Metoclopramide HCl 10 MG/2 ML VIAL IVPUSH (02:30)
[2023-12-03] MEDS: 0.9 % Sodium Chloride 1,000 ML 999 ML IV (02:30)
--- NOTE | 2023-12-03 02:34 | ED.ABDPAIN ---
HPI - Abdominal Pain General Chief Complaint: Abdominal Pain Stated Complaint: Abdominal pain Time Seen by Provider: 12/03/23 01:48 Source: patient and old records reviewed Mode of arrival: ambulatory Limitations: no limitations History of Present Illness HPI narrative: 48 yo female with PMH of bronchitis here with c/o RLQ pain and lump that she has had for a while that seems more promiment she did have BM today and passed gas but feels very nauseated. No urinary symptoms no vaginal discharge or bleeding. Lump goes in when she lays flat. MD elicited complaint: abdominal pain Pertinent past history: none Onset (ago): day(s) (1) Pain Consistency: constant Location: RLQ Severity: moderate Quality: aching and fullness Radiation: none Migration to: no migration Exacerbating factors: movement Relieving factors: nothing Associated symptoms: nausea Related Data Home Medications Medication Instructions Recorded Confirmed loratadine 10 mg tablet (Claritin) 10 mg PO DAILY 07/09/22 07/09/22 Previous Rx's Medication Instructions Recorded albuterol sulfate 90 mcg/actuation 2 puff PO Q6H PRN shortness of 06/20/23 aerosol inhaler breath or wheezing 30 days #8.5 ea fluticasone 250 mcg-salmeterol 50 1 inh inhalation BID ASTHMA/COPD 06/20/23 mcg/dose blistr powdr for 30 days #60 ea inhalation (Advair Diskus) amoxicillin 875 mg-potassium 1 tab PO BID #14 tabs 12/03/23 clavulanate 125 mg tablet ondansetron 4 mg disintegrating 4 mg PO Q8H PRN nausea and 12/03/23 tablet vomiting #20 tabs polyethylene glycol 3350 17 17 g PO DAILY constipation 10 days 12/03/23 gram/dose oral powder (Miralax) #119 grams Allergies Allergy/AdvReac Type Severity Reaction Status Date / Time Seasonal Allergies Allergy Mild mild Verified 10/24/23 07:41 Review of Systems Review of Systems Constitutional : No Weight loss, No Fever, No Chills ENT/Mouth : No sore throat, No Rhinorrhea Eyes: No Swelling, No Redness Cardiovascular : No Chest Pain, No SOB, NoEdema Respiratory : No Cough, No Sputum, No Wheezing Gastrointestinal : Positive Nausea, Positive Vomiting, no Diarrhea, positive abdominal Pain, No Hematochezia, No Melena Genitourinary : No Dysuria, No Urinary Frequency, No Hematuria, No Urgency Musculoskeletal : No joint pain, No Myalgias, No Joint Swelling Skin : No Skin Lesions, No rash Neuro : No Weakness, No Numbness, No Dizziness, No Headache Psych : No Anxiety/Panic, No Depression Heme/Lymph: No Bruising, No Lymphadenopathy Endocrine : No Polyuria, No Polydipsia All other systems reviewed and are negative. [facility], [facility] Past Medical History Attestation statement: The following information was validated with the patient. Source: old records reviewed Medical History Polyp at cervical os Allergic rhinitis Bronchial asthma Dyspnea on exertion Bronchiectasis Dyspnea and respiratory abnormalities Varicose veins of both lower extremities with pain Mild intermittent asthma Surgical History No pertinent past surgical history Family History Family History Father Substance use disorder Social History Social History Housing: House Patient Tobacco Use Status: Never used Tobacco Smoked in Last 30 Days: No e-Cigarette/Vaping Use: Never Used Use of substances other than those prescribed or required for medical reasons: No Advance Directives: No Advance Directives Information Provided: No Patient : No service: No Current occupational status: employed Cognitive needs: No Hearing needs: No Vision needs: Yes Physical Exam ED Vital Signs: Vital Signs - 24 hr 12/02/23 21:54 12/03/23 01:39 12/03/23 05:20 Temperature 98.1 F 98.2 F Pulse Rate 58 55 57 Respiratory Rate 20 17 16 Blood Pressure 129/51 L 116/43 L 125/50 L Pulse Oximetry 100 100 96 Oxygen Delivery Method Room Air Room Air Room Air BMI result Body Mass Index 22.3 Appearance: Alert. Oriented X3. No acute distress. Eyes: Pupils equal, round and reactive to light. ENT: Pharynx normal. Neck: Normal inspection. Neck supple. CVS: Normal heart rate and rhythm. Pulses normal. Respiratory: No respiratory distress. Breath sounds normal. Abdomen: Soft and right sided groin hernia noted but it goes in when she lays flat Skin: Skin warm and dry. Normal skin color. Normal skin turgor. Extremities: No lower extremity edema. No calf ttp Neuro: Oriented X 3. No motor deficit. No sensory deficit. Medical Decision Making Medical Decision Making [facility] Narrative: 48 yo female with hx of asthma here with c/o RLQ pain and mass felt that feels like a hernia that goes in easily at this time will obtain labs, UA, CT scan for any obstructive process, renal colic, appendicits and provide supportive medications. Differential Diagnosis Differential Diagnoses: The differential diagnosis associated with the presentation includes hernia appendicitis, viral syndrome, groin strain lymph node Admission/Observation Consideration of admission/observation: Escalation of care including admission/observation considered feels better spoke to [place] about cecum given no SBO stable for DC Lab Data [facility] Lab Attestation statement: I reviewed the patient's lab results. 12/02/23 22:11 12/02/23 22:11 Labs: Lab Results 12/02/23 12/02/23 Range/Units 22:11 22:16 WBC 8.4 (4.8-10.8) X10*3/uL RBC 4.48 (4.20-5.50) X10*6/uL Hgb 12.4 (12.0-16.0) g/dl Hct 37.6 (37.0-47.0) % MCV 83.9 (80.0-98.0) fL MCH 27.7 (27.0-33.0) pg MCHC 33.0 (31.0-35.0) g/dl RDW 14.2 (11.0-16.0) % Plt Count 227 D (160-400) X10*3/uL MPV 9.9 (9.4-12.3) fL Immature Gran % (Auto) 0.2 (0.0-0.4) % Neut % (Auto) 84.0 H (45-73) % Lymph % (Auto) 9.9 L (20-40) % [place] % (Auto) 4.1 (2-11) % Eos % (Auto) 1.2 (0-4) % Baso % (Auto) 0.6 (0-2) % Lymph # (Auto) 0.8 L (1.2-4.9) X10*3/uL [place] # (Auto) 0.3 (0.1-1.2) X10*3/uL Eos # (Auto) 0.1 (0.0-0.4) X10*3/uL Baso # (Auto) 0.1 (0.0-0.2) X10*3/uL Abs Immat Gran (auto) 0.02 (0.00-0.03) X10*3/uL Absolute Neuts (auto) 7.0 (2.0-8.3) x10*3/uL Absolute Nucleated RBC 0.000 (0.0-0.012) X10*3/uL Nucleated RBC % (auto) 0.0 (0.0-0.2) /100WBC Sodium 138 (135-145) mmol/L Potassium 4.7 (3.3-5.1) mmol/L Chloride 105 (96-108) mmol/L Carbon Dioxide 25 (22-29) mmol/L Anion Gap 13 (12-20) BUN 12 (9-16) mg/dL Creatinine 0.80 (0.5-1.4) mg/dL Estim Creat Clear Calc 90.8 Estimated GFR > 60 Random Glucose 136 H (60-115) mg/dL Calcium 9.9 (8.4-10.2) mg/dL Total Bilirubin 0.7 (0.0-1.0) mg/dL AST 23 (5-31) U/L ALT 17 (0-31) U/L Alkaline Phosphatase 66 (39-117) U/L Total Protein 7.7 (6.5-8.0) g/dL Albumin 4.6 (3.5-5.0) g/dL Urine Color Yellow Urine Appearance Clear Urine pH >= 9.0 (5.0-9.0) Ur Specific [place] 1.015 (1.005-1.025) Urine Protein Negative (Neg-Trace) mg/dL Urine Glucose (UA) Negative (Negative) mg/dL Urine Ketones 40 (Negative) mg/dL Urine Blood Negative (Negative) Urine Nitrite Negative (Negative) Ur Leukocyte Esterase Negative (Negative) Urine RBC 0-2 (0-2) /HPF Urine WBC 0-5 (0-5) /HPF Ur Squamous Epith Cells 0-2 (0-2) /HPF Urine Bacteria None Seen (None Seen) Hyaline Casts 0-2 (0-2) /LPF Independent Interpretation I performed an independent interpretation of an: CT Scan (will start on augmentin and bowel regimen) Radiology Impression Discussion of test interpretation with radiology: I have reviewed the radiologist's reading. Independent Historian Clinical information obtained from an independent historian. History obtained from or confirmed by: Spouse External Record Review External record reviewed: Office record Prescription Management I considered prescription management with: Antibiotic and Other Medications Administered Discontinued Medications Generic Name Dose Route Start Last Admin Trade Name Freq PRN Reason Stop Dose Admin Diphenhydramine HCl 25 mg 12/03/23 02:19 12/03/23 02:30 Diphenhydramine Hcl 50 Mg/Ml Vial IVPUSH 12/03/23 02:20 25 mg ONCE ONE Administration Sodium Chloride 1,000 mls @ 999 mls/hr 12/03/23 02:30 12/03/23 03:57 Ns IV 12/03/23 03:30 Infused .Q1H1M DEBBIE Infusion Iohexol 85 ml 12/03/23 03:41 12/03/23 03:41 Iohexol 350 Mg/Ml 100 Ml Infus..Btl IV 12/03/23 03:42 85 ml ONCE ONE Administration Ketorolac Tromethamine 15 mg 12/03/23 02:20 12/03/23 02:30 Ketorolac Tromethamine 15 Mg/Ml Vial IVPUSH 12/03/23 02:21 15 mg ONCE ONE Administration Metoclopramide HCl 10 mg 12/03/23 02:19 12/03/23 02:30 Metoclopramide Hcl 10 Mg/2 Ml Vial IVPUSH 12/03/23 02:20 10 mg ONCE ONE Administration Ondansetron HCl 4 mg 12/02/23 21:58 12/02/23 22:01 Ondansetron Odt 4 Mg Tab.Rapdis TRANSLINGU 12/02/23 21:59 4 mg ONCE ONE Administration Discharge Plan Discharge Clinical Impression: Acute proctitis Constipation Qualifiers: Constipation type: unspecified constipation type Qualified Code(s): K59.00 - Constipation, unspecified Patient Disposition: Home, Self-Care Instructions: Constipation (ED), Proctitis (ED) Additional Instructions: return for worsening symptoms, no bowel movement severe pain, vomiting fevers or any other concerns. use bowel regimen take a probiotic and please finish antibiotics Prescriptions: New polyethylene glycol 3350 [Miralax] 17 gram/dose powder 17 g PO DAILY 10 Days Qty: 119 0RF ondansetron 4 mg tablet,disintegrating 4 mg PO Q8H PRN (Reason: nausea and vomiting) Qty: 20 0RF amoxicillin-pot clavulanate 875-125 mg tablet 1 tab PO BID Qty: 14 0RF No Action fluticasone propion-salmeterol [Advair Diskus] 250-50 mcg/dose blister with device 1 inh inhalation BID 30 Days Qty: 60 5RF albuterol sulfate 90 mcg/actuation HFA aerosol inhaler 2 puff PO Q6H PRN (Reason: shortness of breath or wheezing) 30 Days Qty: 8.5 4RF loratadine [Claritin] 10 mg tablet 10 mg PO DAILY Referrals: Gabo Wood MD [Physician] - (surgeon) Stand Alone Forms: Work/School Release
[2023-12-03] MEDS: iohexoL 350 MG/ML 100 ML INFUS..BTL 85 ML IV (03:41)
[2023-12-03 05:20] VITALS: BP 125/50; PULSE 57; RESP 16; O2SAT 96
[2023-12-03 05:58] VITALS: BP 124/44; PULSE 56; RESP 18; TEMP 36.8; O2SAT 98
== END 2023-12-03 05:58 | disposition home or self-care (01) ==
PROVIDERS: Emergency Provider Emergency Medicine; PCP Internal Medicine
DX: K62.89 Other specified diseases of anus and rectum (principal); K59.00 Constipation, unspecified; R10.31 Right lower quadrant pain
CPT/HCPCS: 36415; 74177; 80053; 81001; 85025; 96361; 96374; 96375; 99284; 99285; J1200; J1885; J2765; Q9967

== ENCOUNTER 2024-03-12 15:34 | Outpatient (AMB) | payer BC, SELFPAY ==
[2024-03-12 15:41] VITALS: BP 102/78; BMI 21.3
--- NOTE | 2024-03-12 15:41 | MHC.OFFVIS ---
Vital Signs 03/12/24 15:41 Height 5 ft 9 in Weight 144 lb BMI 21.3 BP 102/78 Blood Pressure Location Lt brachial Position Sitting Intake Visit Reasons: Bronchiectasis Intake Note: pt is here for follow up and had a few er visits for her breathing. 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 BRONCHIAL ASTHMA IS WELL CONTROLLED WITH THE USE OF ADVAIR 250-50 USUALLY ONCE A DAY AND SOMETIME IF SHE GETS WORSE THEN SHE INCREASES TO TWICE A DAY. HE IS PRONE TO HAVE LOWER RESPIRATORY INFECTIONS, AND HAS USED THE Z-JACQUE ALONG WITH AMOXICILLIN AUGMENTIN A FEW TIMES. 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 [facility] Medical History Polyp at cervical os Allergic rhinitis Bronchial asthma Dyspnea on exertion Bronchiectasis Dyspnea and respiratory abnormalities Varicose veins of both lower extremities with pain Mild intermittent asthma Surgical History No pertinent past surgical history Family History Father Substance use disorder Social History Housing: House Patient Tobacco Use Status: Never used Tobacco e-Cigarette/Vaping Use: Never Used service: No Current occupational status: employed Cognitive needs: No Hearing needs: No Vision needs: Yes Review of Systems Const All systems reviewed & are unremarkable except as noted in HPI and below Eyes Reports no additional complaints ENT Reports nasal congestion (Mild intermittent) Card Reports no additional complaints Resp Reports as per HPI GI Reports no additional complaints Reports no additional complaints Musc Reports no additional complaints Skin/Breast Reports system reviewed and no additional complaints, except as documented Neuro Reports no additional complaints Psych Reports no additional complaints Physical Exam Vital Signs: BMI result Body Mass Index 21.3 Const General: healthy appearing, comfortable, no acute distress, alert and awake Orientation/consciousness: patient oriented x3 HEENT Head: Yes normal to inspection General nose exam: No nasal polyps present and No nasal discharge present Face and sinus: Yes sinuses nontender Mouth: oropharynx normal Throat: Yes posterior oropharynx normal Eyes General: appearance normal, both eyes and all related structures Neck Neck: Yes normal visual inspection, Yes no lymphadenopathy, Yes trachea midline and Yes no JVD Thyroid: Thyroid normal Chest Chest palpation & inspection: normal inspection of the chest, normal palpation of entire chest wall and no tenderness Resp Other: Percussion note is hyper-resonant,. Breath sounds are normal and equal on both sides. No wheezes . Has a few inspiratory crackles over the basilar areas. Effort & Inspection: normal respiratory effort Auscultation: clear to auscultation bilaterally Cardio Palpation: normal PMI Rate: regular rate Rhythm: regular rhythm Heart sounds: Gallop heart sound present and Murmur heart sound present Peripheral pulses: Peripheral pulses 2+ throughout GI Palpation (GI): Soft to palpation, nontender, No hepatosplenomegaly present and no masses Auscultation: normal bowel sounds Back/Spine/Pelvis Thoracic/Lumbar Spine: thoracic and lumbar spine normal to inspection Skin General skin exam: no rashes or lesions noted Neuro General: patient oriented x3 and no focal motor deficits Cranial nerves: Yes CN's II-XII intact bilaterally Extrem General: Yes normal to inspection, Yes no clubbing, cyanosis or edema and Yes no calf tenderness Psych Appearance: grossly normal and well kempt Mental Status: mental status grossly normal Speech and movement: Normal speech and movement present Assessment & Plan Assessment & Plan (1) Allergic rhinitis: Comment: SHE HAS SEASONAL AND ENVIRONMENTAL ALLERGIES, AND SHE DOES GET NASAL CONGESTION WITH POSTNASAL DRIP OFF AND ON. SHE CAN CONTROL THE SYMPTOMS WITH CLARITIN 10 MG DAILY NEEDED. Code(s): J30.9 - Allergic rhinitis, unspecified Category: Medical Qualifiers: Allergic rhinitis trigger: unspecified Allergic rhinitis seasonality: unspecified Qualified Code(s): J30.9 - Allergic rhinitis, unspecified Plan: USE CLARITIN 10 MG ONCE A DAY P.R.N.. (2) Bronchiectasis: Comment: SHE DOES HAVE DIFFUSE CYLINDERICAL BRONCHIECTASIS, PREDOMINANTLY IN THE LOWER LOBES. THIS SEEMS TO BE RELATED TO HER CHRONIC BRONCHIAL ASTHMA AND RECURRENT RESPIRATORY INFECTIONS. Code(s): J47.9 - Bronchiectasis, uncomplicated Category: Medical Qualifiers: Bronchiectasis type: uncomplicated Qualified Code(s): J47.9 - Bronchiectasis, uncomplicated Plan: TX: ADVISED TO DRINK PLENTY OF FLUIDS, USE VAPORIZER/HUMIDIFIER IN THE HOUSE DURING WINTER MONTHS. ALSO USE MUCINEX 600 MG B.I.D P.R.N.. ACUTE RECURRENT RESPIRATORY INFECTIONS, SHE MAY USE A COURSE OF ANTIBIOTICS SUCH AUGMENTIN 875 MG B.I.D. FOR 5 DAYS. (3) Mild intermittent asthma: Comment: LONGSTANDING HISTORY OF BRONCHIAL ASTHMA. SYMPTOMATICALLY WELL CONTROLLED AT THIS TIME. Code(s): J45.20 - Mild intermittent asthma, uncomplicated Category: Medical Plan: ADVAIR 250-51 INHALATION B.I.D., AND WHEN SYMPTOMS ARE UNDER CONTROL THEN MAY CUT DOWN TO ONLY ONCE A DAY. ALBUTEROL HFA 2 PUFFS Q 6 HOURS ONLY P.R.N. Medications: New amoxicillin-pot clavulanate 500-125 mg (Augmentin) 1 tab PO BID 7 days 14 tabs 1RF BRONCHIECTASIS Coding Level of Care Code Est Pt Level 3 (18890) Diagnoses Allergic rhinitis, unspecified seasonality, unspecified trigger J30.9 Allergic rhinitis trigger: unspecified Allergic rhinitis seasonality: unspecified Bronchiectasis without complication J47.9 Bronchiectasis type: uncomplicated Mild intermittent asthma J45.20
== END 2024-03-12 15:56 | disposition home or self-care (01) ==
PROVIDERS: PCP Internal Medicine; Visit Provider Internal Medicine
DX: J30.9 Allergic rhinitis, unspecified (principal); J47.9 Bronchiectasis, uncomplicated; J45.20 Mild intermittent asthma, uncomplicated
CPT/HCPCS: 99213

== ENCOUNTER → 2024-03-12 15:34 | Outpatient (BNVA) | payer BC, SELFPAY | PROVIDERS: PCP Internal Medicine; Visit Provider Internal Medicine ==

== ENCOUNTER 2024-06-21 10:23 | Outpatient (AMB) | payer BC, SELFPAY ==
[2024-06-21 10:44] VITALS: BP 110/60; PULSE 87; TEMP 37.7; O2SAT 97; BMI 21.6
--- NOTE | 2024-06-21 10:44 | MHC.OFFVIS ---
Vital Signs 06/21/24 10:44 Height 5 ft 9 in Weight 146 lb 9.718 oz BMI 21.6 BP 110/60 Blood Pressure Location Lt brachial Position Sitting Pulse 87 Pulse Source Pulse Oximeter Temp 100 F Temp Source Tympanic Pulse Oximetry (%) 97 Oxygen Delivery Method Room Air Intake Visit Reasons: asthma Intake Note: pt is here and she is not feeling well at all, she finished antibiotic and the day after she felt terrible. coughing all the time with production, very heavy chest, congestion, fatigue and fever. Only a few week of relief. 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 Allergies Seasonal Allergies Allergy (Mild, Verified 06/21/24 11:11) mild Medication List - Last Reconciled 06/21/24 by Lucita Wong MD albuterol sulfate 90 mcg/actuation 2 puffs PO Q6H PRN 30 days cholecalciferol (vitamin D3) 1,250 mcg PO QWEEK 3 months fluticasone propion-salmeterol 250-50 mcg/dose (Advair Diskus) 1 inh inhalation BID 30 days loratadine (Claritin) 10 mg PO DAILY Do you need a note to return to daycare/school/sports/work: No HPI HPI asthma: Details: THIS 48 YEARS OLD FEMALE, IS A KNOWN CASE OF BRONCHIECTASIS IN THE LOWER LOBES, AND MILD BRONCHIAL ASTHMA, WHICH FLARES UP EVERY NOW AND THEN. BRONCHIAL ASTHMA IS CONTROLLED FAIRLY WELL THE USE OF WIXELA 250-50ONE INHALATION B.I.D. SHE IS PRONE TO HAVE LOWER RESPIRATORY INFECTIONS, AND HAS USED THE Z-JACQUE ALONG WITH AMOXICILLIN/CLAV ( AUGMENTIN) IN THE PAST . RECENTLY SHE HAD ANOTHER BOUT OF CHEST CONGESTION, AND SHE IS JUST FINISHING A COURSE OF AMOXICILLIN/CLAV. SHE IS STILL NOT FEELING BETTER HAS THE FEELING OF CHEST CONGESTION WITH INCREASED COUGH BUT CAN NOT EXPECTORATES MUCH. CAME TODAY TO THE OFFICE HOPING THAT I COULD GIVE HER ANOTHER COURSE OF SOME ANTIBIOTIC. 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 SHE IS NONSMOKER . [facility] Medical History Polyp at cervical os Allergic rhinitis Bronchial asthma Dyspnea on exertion Bronchiectasis Dyspnea and respiratory abnormalities Varicose veins of both lower extremities with pain Mild intermittent asthma Surgical History No pertinent past surgical history Family History Father Substance use disorder Social History Housing: House Patient Tobacco Use Status: Never used Tobacco e-Cigarette/Vaping Use: Never Used service: No Current occupational status: employed Cognitive needs: No Hearing needs: No Vision needs: Yes Review of Systems Const All systems reviewed & are unremarkable except as noted in HPI and below Eyes Reports no additional complaints ENT Reports nasal congestion (Mild intermittent) Card Reports no additional complaints Resp Reports as per HPI GI Reports no additional complaints Reports no additional complaints Musc Reports no additional complaints Skin/Breast Reports system reviewed and no additional complaints, except as documented Neuro Reports no additional complaints Psych Reports no additional complaints Physical Exam Vital Signs: Last Vital Signs Temp 100 F 06/21/24 10:44 Pulse 87 06/21/24 10:44 BP 110/60 06/21/24 10:44 Pulse Ox 97 06/21/24 10:44 Oxygen Delivery Method Room Air 06/21/24 10:44 BMI result Body Mass Index 21.6 Const General: healthy appearing, comfortable, no acute distress, alert and awake Orientation/consciousness: patient oriented x3 HEENT Head: Yes normal to inspection General nose exam: No nasal polyps present and No nasal discharge present Face and sinus: Yes sinuses nontender Mouth: oropharynx normal Throat: Yes posterior oropharynx normal Eyes General: appearance normal, both eyes and all related structures Neck Neck: Yes normal visual inspection, Yes no lymphadenopathy, Yes trachea midline and Yes no JVD Thyroid: Thyroid normal Chest Chest palpation & inspection: normal inspection of the chest, normal palpation of entire chest wall and no tenderness Resp Other: Percussion note is hyper-resonant,. Breath sounds are normal and equal on both sides. No wheezes . SHE DOES HAVE INSPIRATORY CRACKLES OVER THE BASILAR AREAS. Effort & Inspection: normal respiratory effort Auscultation: clear to auscultation bilaterally Cardio Palpation: normal PMI Rate: regular rate Rhythm: regular rhythm Heart sounds: Gallop heart sound present and Murmur heart sound present Peripheral pulses: Peripheral pulses 2+ throughout GI Palpation (GI): Soft to palpation, nontender, No hepatosplenomegaly present and no masses Auscultation: normal bowel sounds Back/Spine/Pelvis Thoracic/Lumbar Spine: thoracic and lumbar spine normal to inspection Skin General skin exam: no rashes or lesions noted Neuro General: patient oriented x3 and no focal motor deficits Cranial nerves: Yes CN's II-XII intact bilaterally Extrem General: Yes normal to inspection, Yes no clubbing, cyanosis or edema and Yes no calf tenderness Psych Appearance: grossly normal and well kempt Mental Status: mental status grossly normal Speech and movement: Normal speech and movement present Results Reviewed Results Reviewed: I REVIEWED PREVIOUS CT SCAN OF THE CHEST, MORE RECENT CT SCAN OF THE ABDOMEN WITH IMAGING OF LOWER LOBES OF THE LUNGS. 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 PREVIOUS CBCs HAVE SHOWN SLIGHT ELEVATION OF EOSINOPHILIC COUNT OFF AND ON. Assessment & Plan Assessment & Plan (1) Allergic rhinitis: Comment: SHE HAS SEASONAL AND ENVIRONMENTAL ALLERGIES, AND SHE DOES GET NASAL CONGESTION WITH POSTNASAL DRIP OFF AND ON. AT PRESENT SHE DOES NOT HAVE ACTIVE NASAL CONGESTION POSTNASAL DRIP OR RHINORRHEA. Code(s): J30.9 - Allergic rhinitis, unspecified Category: Medical Qualifiers: Allergic rhinitis seasonality: unspecified Allergic rhinitis trigger: unspecified Qualified Code(s): J30.9 - Allergic rhinitis, unspecified Plan: ADVISED TO USE CLARITIN 10 MG ONCE A DAY P.R.N.. (2) Bronchiectasis: Comment: SHE DOES HAVE DIFFUSE CYLINDERICAL BRONCHIECTASIS, PREDOMINANTLY IN THE LOWER LOBES. THIS SEEMS TO BE RELATED TO HER CHRONIC BRONCHIAL ASTHMA AND RECURRENT RESPIRATORY INFECTIONS. SHE IS PRONE TO HAVE RECURRENT RESPIRATORY INFECTIONS. Code(s): J47.9 - Bronchiectasis, uncomplicated Category: Medical Qualifiers: Bronchiectasis type: uncomplicated Qualified Code(s): J47.9 - Bronchiectasis, uncomplicated Plan: ADVISED TO DRINK PLENTY OF FLUIDS. TO THE LOWER LOBES, ONCE OR TWICE A DAY. I HAVE EXPLAINED IT TO HER PARTNER TO DO GENTLE TAPPING OVER THE LOWER LOBES WITH HIS BODY POSITION SLANTING FORWARD. USE GUAIFENESIN 600 MG B.I.D.. I WOULD NOT START ON ANTIBIOTIC AT THIS TIME. ORDERED A SPUTUM GRAM STAIN AND CULTURE, AFTER GETTING A DEEP SPUTUM SAMPLE BY USE OF THE NEBULIZED SALINE AND ALBUTEROL. I HAVE ALSO ORDERED CBC WITH DIFF AND IGE LEVEL, AND IF EITHER 1 OF THEM IS ELEVATED THEN CONSIDER STARTING ON BIOLOGIC TREATMENT. (3) Mild intermittent asthma: Comment: LONGSTANDING HISTORY OF BRONCHIAL ASTHMA. SYMPTOMATICALLY WELL CONTROLLED AT THIS TIME. Code(s): J45.20 - Mild intermittent asthma, uncomplicated Category: Medical Plan: CONTINUE WIXELA 250-51 INHALATION B.I.D.. USE ALBUTEROL HFA 2 PUFFS Q 4-6 HOURS ONLY P.R.N. Orders: Orders Smear for EOS (Nasal/Sputum) Today J45.20 - Mild intermittent asthma, uncomplicated, J47.9 - Bronchiectasis, uncomplicated Immunoglobulin E Today J30.9 - Allergic rhinitis, unspecified, J45.20 - Mild intermittent asthma, uncomplicated, J47.9 - Bronchiectasis, uncomplicated Sputum Cult + Gram stain Today J30.9 - Allergic rhinitis, unspecified, J45.20 - Mild intermittent asthma, uncomplicated, J47.9 - Bronchiectasis, uncomplicated Complete Blood Count Man Dif Today J30.9 - Allergic rhinitis, unspecified, J45.20 - Mild intermittent asthma, uncomplicated, J47.9 - Bronchiectasis, uncomplicated Coding Level of Care Code Est Pt Level 3 (69786) Diagnoses Allergic rhinitis, unspecified seasonality, unspecified trigger J30.9 Allergic rhinitis seasonality: unspecified Allergic rhinitis trigger: unspecified Bronchiectasis without complication J47.9 Bronchiectasis type: uncomplicated Mild intermittent asthma J45.20
== END 2024-06-21 11:11 | disposition home or self-care (01) ==
PROVIDERS: PCP Internal Medicine; Visit Provider Internal Medicine
DX: J30.9 Allergic rhinitis, unspecified (principal); J47.9 Bronchiectasis, uncomplicated; J45.20 Mild intermittent asthma, uncomplicated
CPT/HCPCS: 99213

== ENCOUNTER → 2024-06-21 10:23 | Outpatient (BNVA) | payer BC, SELFPAY | PROVIDERS: PCP Internal Medicine; Visit Provider Internal Medicine ==

== ENCOUNTER 2024-06-25 09:56 | Outpatient (REF) | payer BC, SELFPAY ==
[2024-06-25 11:46] LABS: Baso%MD 0.4 %; Eos%MD 5.2 %; Hematocrit 37.6 % (37.0-47.0); Hemoglobin 12.3 g/dl (12.0-16.0); IG%MD 0.5 %; Lymph%MD 13.3 %; Mean Corpuscular HGB Conc 32.7 g/dl (31.0-35.0); Mean Corpuscular Hemoglobin 28.2 pg (27.0-33.0); Mean Corpuscular Volume 86.2 fL (80.0-98.0); Mean Platelet Volume 9.3 fL (9.4-12.3); Mono%MD 5.2 %; Neut%MD 75.4 %; Platelet Count 343 X10*3/uL (160-400); Red Blood Count 4.36 X10*6/uL (4.20-5.50); Red Cell Distribution Width 13.4 % (11.0-16.0)
[2024-06-25 12:37] LABS: Vitamin D 25-OH Total 62.6 ng/mL (>30)
[2024-06-25 13:38] LABS: Band Neutrophils Percent 0 % (3-5); Eosinophils Absolute Manual 0.5 X10*3/uL (0.0-0.4); Eosinophils Percent Manual 4 % (0-4); Lymphocytes Absolute Manual 1.7 X10*3/uL (1.2-4.9); Lymphocytes Percent Manual 14 % (20-40); Neutrophils Absolute Manual 9.8 X10*3/uL (2.0-8.3); Neutrophils Percent Manual 82 % (45-73); Platelet Estimate NORMAL (NORMAL); Platelet Morphology Comment NORMAL; RBC Morphology NORMAL
[2024-06-25 13:58] LABS: EOS QC POS YES; EOS Stain Quality OK YES
[2024-06-25 14:00] LABS: Smear for Eos (Nasal/Sputum) NEGATIVE
[2024-06-26 13:47] LABS: Immunoglobulin E 93 kU/L (<OR=114)
== END 2024-06-25 09:57 | disposition home or self-care (01) ==
LOC: HO.LAB 09:56
PROVIDERS: PCP Internal Medicine; Visit Provider Internal Medicine
DX: J47.9 Bronchiectasis, uncomplicated (principal); Z86.39 Personal history of other endocrine, nutritional and metabolic disease; J30.9 Allergic rhinitis, unspecified; J45.20 Mild intermittent asthma, uncomplicated; Z79.899 Other long term (current) drug therapy
CPT/HCPCS: 36415; 82306; 82785; 85007; 85027; 87070; 87077; 87185; 87205; 94640; 99211

== ENCOUNTER 2024-06-25 09:56 | Outpatient (AMB) | payer BC, SELFPAY ==
[2024-06-25 10:46] VITALS: PULSE 83; O2SAT 96
--- NOTE | 2024-06-25 10:46 | A.OFFVIS_ITS ---
Vital Signs 06/25/24 10:46 Weight 146 lb 9.718 oz Pulse 83 Pulse Source Pulse Oximeter Pulse Oximetry (%) 96 Oxygen Delivery Method Room Air Intake Visit Reasons: Sputum Sample Allergies Seasonal Allergies Allergy (Mild, Verified 06/25/24 10:47) mild Medication List - Last Reconciled 06/25/24 by Linda Nichols LPN albuterol sulfate 90 mcg/actuation 2 puffs PO Q6H PRN 30 days cholecalciferol (vitamin D3) 1,250 mcg PO QWEEK 3 months fluticasone propion-salmeterol 250-50 mcg/dose (Advair Diskus) 1 inh inhalation BID 30 days loratadine (Claritin) 10 mg PO DAILY [facility] Medical History Polyp at cervical os Allergic rhinitis Bronchial asthma Dyspnea on exertion Bronchiectasis Dyspnea and respiratory abnormalities Varicose veins of both lower extremities with pain Mild intermittent asthma Surgical History No pertinent past surgical history Family History Father Substance use disorder Social History Housing: House Patient Tobacco Use Status: Never used Tobacco e-Cigarette/Vaping Use: Never Used service: No Current occupational status: employed Cognitive needs: No Hearing needs: No Vision needs: Yes Physical Exam Vital Signs: Last Vital Signs Pulse 83 06/25/24 10:46 Pulse Ox 96 06/25/24 10:46 Oxygen Delivery Method Room Air 06/25/24 10:46 Office Procedures Nebulizer Treatment Nebulizer Treatment [id number]/[id number] RX initial, or Nebulizer Subsequent Treatment Office Meds albuterol sulfate 2.5 mg/3 mL (0.083 %) solution for nebulization Performing Provider: Lucita Wong MD Performing Location: [facility] [place] Pulmonology Services Administered by: Linda Nichols LPN on 06/25/24 10:47 Dose Route Admin Location Dispensed Lot Number Expiration Date [facility] New Car [employer] 2.5 mg inhalation 3 mL [id number] 12/17/24 7898-0782-61 MYLAN sodium chloride 3 % for nebulization Performing Provider: Lucita Wong MD Performing Location: [facility] [place] Pul[facility]ology Services Administered by: Linda Nichols LPN on 06/25/24 10:47 Dose Route Admin Location Dispensed Lot Number Expiration Date [employer] Car [employer] 3 mL inhalation 3 mL [id number] 06/18/25 [id number] [employer] [facility] Comments: Constance was able to successfully expectorate sputum for culture. Assessment & Plan Assessment & Plan (1) Bronchial asthma: Comment: Frequent respiratory infections Code(s): J45.909 - Unspecified asthma, uncomplicated Category: Medical Qualifiers: Asthma complication type: uncomplicated Asthma persistence: intermittent Asthma severity: mild Qualified Code(s): J45.20 - Mild intermittent asthma, uncomplicated Plan: Needs deep sputum for Gram stain and culture. With the help of nebulizer Orders: Orders AMB Nebulizer Treatment Today J45.20 - Mild intermittent asthma, uncomplicated Coding Level of Care Code Established Pt Est Pt Level 1 (68137) Patient Type Established Diagnoses Mild intermittent asthma without complication J45.20 Asthma complication type: uncomplicated Asthma persistence: intermittent Asthma severity: mild CPT Codes Nebulizer Treatment - Nebulizer Treatment, initial or subsequent: 76622- Nebulizer/MDI RX initial, or Nebulizer Subsequent Treatment ([id number]) Comment NURSE VISIT ONLY
== END 2024-06-25 11:08 | disposition home or self-care (01) ==
PROVIDERS: PCP Internal Medicine; Visit Provider Internal Medicine
DX: J45.20 Mild intermittent asthma, uncomplicated (principal)

== ENCOUNTER 2024-08-22 09:58 | Outpatient (AMB) | payer BC, SELFPAY ==
[2024-08-22 10:04] VITALS: BP 110/68; PULSE 90; O2SAT 98; BMI 22.9
--- NOTE | 2024-08-22 10:04 | MHC.OFFVIS ---
Vital Signs 08/22/24 10:04 Height 5 ft 9 in Weight 155 lb 6.814 oz BMI 22.9 BP 110/68 Blood Pressure Location Lt brachial Position Sitting Pulse 90 Pulse Source Pulse Oximeter Pulse Oximetry (%) 98 Oxygen Delivery Method Room Air Intake Visit Reasons: asthma Intake Note: pt is here for follow up and states her left lung lower part feels pressure, only gets better for a few weeks at a time, on antibiotics now, not much coughing but the pressure in the lungs is affecting her life. 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 SHE DOES HAVE FREQUENT BOUTS OF RESPIRATORY INFECTION, INDICATED BY INCREASED CHEST CONGESTION WITH PRESSURE-LIKE FEELING IN THE LOWER LOBES, DIFFICULTY IN EXPECTORATING MUCUS. THE SPUTUM CULTURE IN JUNE, HAD GROWN HAEMOPHILUS INFLUENZAE, SENSITIVE TO PENICILLIN BASED ANTIBIOTICS. SHE RESPONDS WELL TO AUGMENTIN. THE ONLY PROBLEM IS SHE ENDS HAVING INCREASED SYMPTOMS EVERY FEW WEEKS AND THEN HAS TO GO BACK ON AUGMENTIN FOR 10 DAYS. SHE IS USING ADVAIR 250-50 BUT ONLY ONCE A DAY, SHE DOES HAVE A NEBULIZER AT HOME AND HAS BEEN OUT OF ALBUTEROL SOLUTION, THE ALBUTEROL HFA IS NOT VERY EFFECTIVE IN RELIEVING HER SYMPTOMS. HER PREVIOUS CT SCANS HAVE SHOWN PRESENCE OF CHRONIC BRONCHIECTATIC CHANGES IN BOTH LOWER LOBES. [facility] Medical History Polyp at cervical os Allergic rhinitis Bronchial asthma Dyspnea on exertion Bronchiectasis Dyspnea and respiratory abnormalities Varicose veins of both lower extremities with pain Mild intermittent asthma Surgical History No pertinent past surgical history Family History Father Substance use disorder Social History Housing: House Patient Tobacco Use Status: Never used Tobacco e-Cigarette/Vaping Use: Never Used service: No Current occupational status: employed Cognitive needs: No Hearing needs: No Vision needs: Yes Review of Systems Const All systems reviewed & are unremarkable except as noted in HPI and below Eyes Reports no additional complaints ENT Reports nasal congestion (Mild intermittent) Card Reports no additional complaints Resp Reports as per HPI GI Reports no additional complaints Reports no additional complaints Musc Reports no additional complaints Skin/Breast Reports system reviewed and no additional complaints, except as documented Neuro Reports no additional complaints Psych Reports no additional complaints Physical Exam Vital Signs: Last Vital Signs Pulse 90 08/22/24 10:04 BP 110/68 08/22/24 10:04 Pulse Ox 98 08/22/24 10:04 Oxygen Delivery Method Room Air 08/22/24 10:04 BMI result Body Mass Index 22.9 Const General: healthy appearing, comfortable, no acute distress, alert and awake Orientation/consciousness: patient oriented x3 HEENT Head: Yes normal to inspection General nose exam: No nasal polyps present and No nasal discharge present Face and sinus: Yes sinuses nontender Mouth: oropharynx normal Throat: Yes posterior oropharynx normal Eyes General: appearance normal, both eyes and all related structures Neck Neck: Yes normal visual inspection, Yes no lymphadenopathy, Yes trachea midline and Yes no JVD Thyroid: Thyroid normal Chest Chest palpation & inspection: normal inspection of the chest, normal palpation of entire chest wall and no tenderness Resp Other: Percussion note is hyper-resonant,. Breath sounds are normal and equal on both sides. No wheezes . SHE DOES HAVE INSPIRATORY CRACKLES OVER THE BASILAR AREAS. Especially over the right base. Effort & Inspection: normal respiratory effort Auscultation: clear to auscultation bilaterally Cardio Palpation: normal PMI Rate: regular rate Rhythm: regular rhythm Heart sounds: Gallop heart sound present and Murmur heart sound present Peripheral pulses: Peripheral pulses 2+ throughout GI Palpation (GI): Soft to palpation, nontender, No hepatosplenomegaly present and no masses Auscultation: normal bowel sounds Back/Spine/Pelvis Thoracic/Lumbar Spine: thoracic and lumbar spine normal to inspection Skin General skin exam: no rashes or lesions noted Neuro General: patient oriented x3 and no focal motor deficits Cranial nerves: Yes CN's II-XII intact bilaterally Extrem General: Yes normal to inspection, Yes no clubbing, cyanosis or edema and Yes no calf tenderness Psych Appearance: grossly normal and well kempt Mental Status: mental status grossly normal Speech and movement: Normal speech and movement present Assessment & Plan Assessment & Plan (1) Allergic rhinitis: Comment: SHE HAS SEASONAL AND ENVIRONMENTAL ALLERGIES, AND SHE DOES GET NASAL CONGESTION WITH POSTNASAL DRIP OFF AND ON. AT PRESENT SHE DOES NOT HAVE ACTIVE NASAL CONGESTION POSTNASAL DRIP OR RHINORRHEA. Code(s): J30.9 - Allergic rhinitis, unspecified Category: Medical Qualifiers: Allergic rhinitis trigger: unspecified Allergic rhinitis seasonality: unspecified Qualified Code(s): J30.9 - Allergic rhinitis, unspecified Plan: OK to use loratadine 10 mg once a day p.r.n.. (2) Bronchiectasis: Comment: SHE DOES HAVE DIFFUSE CYLINDERICAL BRONCHIECTASIS, PREDOMINANTLY IN THE LOWER LOBES. THIS SEEMS TO BE THE MAIN REASON FOR CHRONIC BRONCHIAL ASTHMA AND RECURRENT RESPIRATORY INFECTIONS. HE IS PRONE TO HAVE RESPIRATORY INFECTIONS SECONDARY TO HAEMOPHILUS INFLUENZAE, AND RESPONSE TO AUGMENTIN. Code(s): J47.9 - Bronchiectasis, uncomplicated Category: Medical Qualifiers: Bronchiectasis type: uncomplicated Qualified Code(s): J47.9 - Bronchiectasis, uncomplicated Plan: I HAVE SHOWN HER THE RADIOLOGIC PICTURES, EDUCATED ABOUT BRONCHIECTASIS. SHE NEEDS TO INCREASE FLUID INTAKE. USE HUMIDIFICATION IN THE HOUSE DURING WINTER MONTHS. MAY USE MUCINEX 400 MG B.I.D. P.R.N.. SHE WOULD NEED FREQUENT COURSES OF AUGMENTIN, BUT NO NEED TO USE PREDNISONE. (3) Mild intermittent asthma: Comment: LONGSTANDING HISTORY OF BRONCHIAL ASTHMA. SYMPTOMATICALLY WELL CONTROLLED AT THIS TIME. Code(s): J45.20 - Mild intermittent asthma, uncomplicated Category: Medical Plan: USE ADVAIR 250-51 INHALATION B.I.D., AND WHEN SYMPTOMS ARE UNDER CONTROLLED SHE MIGHT CUT IT DOWN TO JUST ONCE A DAY. ALBUTEROL SOLUTION IN THE NEBULIZER TO USE Q 4-6 HOURS P.R.N.. PRESCRIPTION FOR ALBUTEROL SOLUTION IS SENT TO THE PHARMACY. Medications: New albuterol sulfate 1.25 mg (3 mL) inhalation Q4-6H PRN 90 mL 4RF shortness of breath or wheezing Refilled amoxicillin-pot clavulanate 500-125 mg (Augmentin) 1 tab PO TID 10 days 30 tabs 2RF BRONCHIECTASIS Coding Level of Care Code Est Pt Level 3 (45912) Diagnoses Allergic rhinitis, unspecified seasonality, unspecified trigger J30.9 Allergic rhinitis trigger: unspecified Allergic rhinitis seasonality: unspecified Bronchiectasis without complication J47.9 Bronchiectasis type: uncomplicated Mild intermittent asthma J45.20
== END 2024-08-22 10:42 | disposition home or self-care (01) ==
PROVIDERS: PCP Internal Medicine; Visit Provider Internal Medicine
DX: J30.9 Allergic rhinitis, unspecified (principal); J47.9 Bronchiectasis, uncomplicated; J45.20 Mild intermittent asthma, uncomplicated
CPT/HCPCS: 99213

== ENCOUNTER → 2024-08-22 09:58 | Outpatient (BNVA) | payer BC, SELFPAY | PROVIDERS: PCP Internal Medicine; Visit Provider Internal Medicine ==

== ENCOUNTER 2024-09-17 11:02 | Outpatient (AMB) | payer BC, SELFPAY ==
--- NOTE | 2024-09-17 11:13 | A.OFFPC_ITS ---
Vital Signs 09/17/24 11:16 Height 5 ft 9 in Weight 159 lb BMI 23.5 BP 118/66 Blood Pressure Location Lt brachial Position Sitting Pulse 80 Pulse Source Pulse Oximeter Pulse Oximetry (%) 96 Oxygen Delivery Method Room Air Intake Visit Reasons: Physical Intake Note: Pt is here today for her PE: Last mammogram 11/23/23, papsmear 09/05/23, colonoscopy 10/04/23 Allergies Seasonal Allergies Allergy (Mild, Verified 09/17/24 11:46) mild Medication List - Last Reconciled 09/17/24 by Yarely Edwards MD albuterol sulfate 90 mcg/actuation 2 puffs PO Q6H PRN 30 days albuterol sulfate 1.25 mg (3 mL) inhalation Q4-6H PRN amoxicillin-pot clavulanate 500-125 mg (Augmentin) 1 tab PO TID fluticasone propion-salmeterol 250-50 mcg/dose (Advair Diskus) 1 inh inhalation BID 30 days loratadine (Claritin) 10 mg PO DAILY Tobacco use date assessed: 09/17/24 Dental Screening Dental Screen Date: 09/17/24 Did you have a dental visit in the last 12 months?: Yes Did you have a dental problem in the last 6 months where you did not have access to dental care?: No Was dental information given to patient?: Patient has dentist HPI Physical HPI Details 49-year-old lady here today for her phys ical exam. She is up-to-date with her screening mammogram, last done 11 23 2023 showing benign findings. She is up-to-date with her Pap smear done 09/05/2023 again with normal findings, HPV negative. She had a negative Cologuard done earlier this year, with negative findings. Repeat screening again in 2026. She has been diagnosed with chronic bronchiectasis mainly in the lower lobes, followed by Dr. Wong currently using albuterol inhaler or albuterol via nebulizer treatment together with had for a discuss. Recently prescribed again Augmentin for recurrent respiratory infection due to her bronchiectasis [facility] Medical History Allergic rhinitis Bronchiectasis Varicose veins of both lower extremities with pain Mild intermittent asthma Surgical History No pertinent past surgical history Family History Father Substance use disorder Social History Housing: House Patient Tobacco Use Status: Never used Tobacco e-Cigarette/Vaping Use: Never Used service: No Current occupational status: employed Cognitive needs: No Hearing needs: No Vision needs: Yes Questionnaire PHQ-9 Over the last 2 weeks, how often have you been bothered by any of the following problems? 1. Little interest or pleasure in doing things: not at all 2. Feeling down, depressed, or hopeless: not at all 3. Trouble falling or staying asleep, or sleeping too much: several days 4. Feeling tired or having little energy: several days 5. Poor appetite or overeating: several days 6. Feeling bad about yourself - or that you are a failure or have let yourself or your family down: not at all 7. Trouble concentrating on things, such as reading the newspaper or watching television: several days 8. Moving or speaking so slowly that other people could have noticed. Or the opposite - being so fidgety or restless that you have been moving around a lot more than usual: several days 9. Thoughts that you would be better off or of hurting yourself in some way: not at all Total score: 5 Depression Screening Interpretation: Negative Depression Screening Done: Yes 84070 - PHQ-9 Billing: Yes Source: Developed by Drs. Rey Tam, Monique Posada, Chon Corrigan and colleagues, with an educational stefan from [employer]. Thrive Questionnaire Date Thrive assessed: 09/17/24 I am a: Patient What is your living situation today?: I have a steady place to live Within the past 12 months, did the food you bought not last and you didn't have the money to get more?: Never true Within the past 12 months, did you worry whether your food would run out before you got money to buy more?: Never true Do you have trouble paying for medicines?: No Do you have trouble getting transportation to medical appointments?: No Do you have trouble paying your heating and electricity bill?: No Do you have trouble taking care of your child, family member or friend?: No Do you have trouble with day-to-day activities such as bathing, preparing meals, shopping, managing finances, etc.?: No Are you currently unemployed and looking for a job?: No Are you interested in more education?: No Please select the resources that you would like help with: None Currently or been in a relationship where the following occur: No concerns repor [place] THRIVE Score: 0 AUDIT C Alcohol Use Questionnaire (AUDIT-C) 1. How often do you have a drink containing alcohol?: Never Total Score: 0 DOYLE-7 AMB Questionnaire DOYLE-7 Date DOYLE - 7 assessed: 09/17/24 Feeling nervous, anxious, or on edge: 0 = Not at all Not being able to stop or control worryin = Not at all Worrying too much about different things: 1 = Several days Trouble relaxin = Several days Being so restless that it is hard to sit still: 0 = Not at all Becoming easily annoyed or irritable: 1 = Several days Feeling afraid as if something awful might happen: 0 = Not at all Total DOYLE-7 score (0-4 normal; 5-9 mild; 10-14 moderate; 15-21 severe): 3 Source: Developed by Drs. Rey Tam, Monique Posada, Chon Corrigan and colleagues, with an educational stefan from [employer]. DOYLE-7 Assessment Billing DOYLE-7 Assessment Tool: DOYLE-7 Assessment 48663 Review of Systems Const All systems reviewed & are unremarkable except as noted in HPI and below Eyes Reports no additional complaints ENT Reports nasal congestion (Mild intermittent) Card Reports no additional complaints Resp Reports as per HPI GI Reports no additional complaints Reports no additional complaints Musc Reports no additional complaints Skin/Breast Reports system reviewed and no additional complaints, except as documented Neuro Reports no additional complaints Psych Reports no additional complaints Endo Reports no additional complaints Simone/Lymph Reports no additional complaints Aller/Immun Reports no additional complaints Physical exam (Primary Care) Vital Signs: Last Vital Signs Pulse 80 09/17/24 11:16 BP 118/66 09/17/24 11:16 Pulse Ox 96 09/17/24 11:16 Oxygen Delivery Method Room Air 09/17/24 11:16 BMI result Body Mass Index 23.5 Tobacco/Smoking Status: Tobacco use Status Tobacco use date assessed 09/17/24 09/17/24 11:22 Patient Tobacco Use Status Never used Tobacco 09/17/24 11:14 e-Cigarette/Vaping Use Never Used 09/17/24 11:14 PHQ-9: PHQ-9 Score PHQ-9: Total score 5 09/17/24 11:50 Depression Screening Interpretation: Negative Thrive Assessment: Date of Thrive Assessment Date Thrive assessed 09/17/24 09/17/24 11:34 Currently or been in a relationship where the following occur: No concerns reported Const General: no acute distress and alert Orientation/consciousness: patient oriented x3 HENMT Ears: external ears normal, TM's normal bilaterally and EAC's normal General nose exam: Normal external nose present, Normal nasal mucous membranes and turbinates present and No nasal discharge present Face and sinus: Yes sinuses nontender and Yes face symmetric Mouth: oropharynx normal and moist mucous membranes Eyes General: appearance normal, both eyes and all related structures Neck Neck: Yes full ROM and Yes no lymphadenopathy Chest Chest palpation & inspection: normal inspection of the chest Breast/axilla palpation: normal palpation of the breasts Resp Effort & Inspection: able to speak in complete sentences and audible wheezes Cardio Jugular venous distension: no JVD Rate: regular rate Rhythm: regular rhythm Heart sounds: S1 normal heart sound present and S2 normal heart sound present GI Inspection: Yes normal to inspection Palpation (GI): Soft to palpation, nontender, no guarding and no masses General: Yes bladder normal to palpation External Female Exam: normal external appearance and normal appearance of the urethra Speculum Exam - Vagina: normal palpation Speculum Exam - Cervix: normal palpation, Cervical os open, Abnormal cervical discharge present white and Cervical lesion present polyp Bimanual exam- vagina & uterus: normal bimanual exam, normal palpation, bladder normal to palpation and normal palpation Bimanual Exam- Adnexa, other: normal adnexae, no masses, normal and No adnexal tenderness OB/external & speculum: Cervical os open Back/Spine/Pelvis Back: No back tenderness Skin General skin exam: no rashes or lesions noted Neuro General: patient oriented x3, gait normal, moves all extremities, Normal light touch and pain sensation, no focal motor deficits and CN's II-XI intact bilaterally Cognition (Neuro): normal cognition Extrem General: Yes full ROM, Yes no joint enlargement, Yes no clubbing, cyanosis or edema, Yes no calf tenderness and Yes normal gait Psych Appearance: grossly normal and well kempt Mental Status: mental status grossly normal Speech and movement: Normal speech and movement present Affect: normal affect Attitude: cooperative Thought process: Normal thought process present Thought content: Normal thought content present Coding Level of Care Code Est Pt Prev Care 40-64y(23831) Diagnoses Annual visit for general adult medical examination with abnormal findings Z00.01 Mild intermittent asthma J45.20 Bronchiectasis without complication J47.9 Bronchiectasis type: uncomplicated Allergic rhinitis, unspecified seasonality, unspecified trigger J30.9 Allergic rhinitis seasonality: unspecified Allergic rhinitis trigger: unspecified Encounter for counseling regarding advance directives Z71.89 Additional Codes PHQ-9 - 71020 - PHQ-9 Billing: Yes ([id number]) DOYLE-7 Assessment Billing - DOYLE-7 Assessment Tool: DOYLE-7 Assessment 44105 ([id number]) Assessment & Plan Assessment & Plan (1) Annual visit for general adult medical examination with abnormal findings: Code(s): Z00.01 - Encounter for general adult medical examination with abnormal findings Plan: Will check appropriate labs. Continue regular dental visit every 6 months and regular eye exams, at least every 2 years. Take adequate calcium in diet and vitamin-D 3 at 2000 IU per cap once a day, in addition to weight-bearing exercises to help maintain good muscle tone and weight control. Instructed to do self-breast exam, and continue with yearly mammogram, up-to-date with her cervical cancer screening.. Had Cologuard testing done this year, due again in 2026 (2) Mild intermittent asthma: Comment: LONGSTANDING HISTORY OF BRONCHIAL ASTHMA. SYMPTOMATICALLY WELL CONTROLLED AT THIS TIME. Code(s): J45.20 - Mild intermittent asthma, uncomplicated Category: Medical Plan: Currently on Advair and albuterol inhaler (3) Bronchiectasis: Comment: SHE DOES HAVE DIFFUSE CYLINDERICAL BRONCHIECTASIS, PREDOMINANTLY IN THE LOWER LOBES. THIS SEEMS TO BE THE MAIN REASON FOR CHRONIC BRONCHIAL ASTHMA AND RECURRENT RESPIRATORY INFECTIONS. HE IS PRONE TO HAVE RESPIRATORY INFECTIONS SECONDARY TO HAEMOPHILUS INFLUENZAE, AND RESPONSE TO AUGMENTIN. Code(s): J47.9 - Bronchiectasis, uncomplicated Category: Medical Qualifiers: Bronchiectasis type: uncomplicated Qualified Code(s): J47.9 - Bronchiectasis, uncomplicated Plan: Advised to stay well-hydrated, use humidifier at home during the winter, currently on Advair and fluticasone inhaler patient has had COVID vaccines in the past but does not want to get the booster, nor does she want to get the flu vaccine. Up-to-date with her pneumonia vaccine and Tdap (4) Allergic rhinitis: Comment: SHE HAS SEASONAL AND ENVIRONMENTAL ALLERGIES, AND SHE DOES GET NASAL CONGESTION WITH POSTNASAL DRIP OFF AND ON. AT PRESENT SHE DOES NOT HAVE ACTIVE NASAL CONGESTION POSTNASAL DRIP OR RHINORRHEA. Code(s): J30.9 - Allergic rhinitis, unspecified Category: Medical Qualifiers: Allergic rhinitis seasonality: unspecified Allergic rhinitis trigger: unspecified Qualified Code(s): J30.9 - Allergic rhinitis, unspecified Plan: Takes Claritin as needed (5) Encounter for counseling regarding advance directives: Code(s): Z71.89 - Other specified counseling Plan: Initiated the conversation about Advanced Directives. Advanced Directives help patients prepare for current and future decisions about their medical treatment and place of care. Discussed with patient that it is a process where a patients current condition and prognosis are reviewed, their wishes for information regarding their illness are elicited, and likely medical dilemmas are presented and options discussed. Healthcare proxy form completed today. The form can be amended as needed, reviewed yearly and make changes as needed Orders: Orders Basic Metabolic Panel Fasting 09/17/24 J30.9 - Allergic rhinitis, unspecified, J45.20 - Mild intermittent asthma, uncomplicated, J47.9 - Bronchiectasis, uncomplicated, Z00.01 - Encounter for general adult medical examination with abnormal findings, Z13.1 - Encounter for screening for diabetes mellitus, Z13.220 - Encounter for screening for lipoid disorders, Z71.89 - Other specified counseling Complete Blood Count Auto Diff 09/17/24 J30.9 - Allergic rhinitis, unspecified, J45.20 - Mild intermittent asthma, uncomplicated, J47.9 - Bronchiectasis, uncomplicated, Z00.01 - Encounter for general adult medical examination with abnormal findings, Z13.1 - Encounter for screening for diabetes mellitus, Z13.220 - Encounter for screening for lipoid disorders Alanine Aminotransferase 09/17/24 J30.9 - Allergic rhinitis, unspecified, J45.20 - Mild intermittent asthma, uncomplicated, J47.9 - Bronchiectasis, uncomplicated, Z00.01 - Encounter for general adult medical examination with abnormal findings, Z13.1 - Encounter for screening for diabetes mellitus, Z13.220 - Encounter for screening for lipoid disorders, Z71.89 - Other specified counseling Aspartate Amino Transferase 09/17/24 J30.9 - Allergic rhinitis, unspecified, J45.20 - Mild intermittent asthma, uncomplicated, J47.9 - Bronchiectasis, uncom plicated, Z00.01 - Encounter for general adult medical examination with abnormal findings, Z13.1 - Encounter for screening for diabetes mellitus, Z13.220 - Encounter for screening for lipoid disorders, Z71.89 - Other specified counseling Lipid Panel 09/17/24 J30.9 - Allergic rhinitis, unspecified, J45.20 - Mild intermittent asthma, uncomplicated, J47.9 - Bronchiectasis, uncomplicated, Z00.01 - Encounter for general adult medical examination with abnormal findings, Z13.1 - Encounter for screening for diabetes mellitus, Z13.220 - Encounter for screening for lipoid disorders, Z71.89 - Other specified counseling Vitamin D 25-OH Total 09/17/24 J30.9 - Allergic rhinitis, unspecified, J45.20 - Mild intermittent asthma, uncomplicated, J47.9 - Bronchiectasis, uncomplicated, Z00.01 - Encounter for general adult medical examination with abnormal findings, Z13.1 - Encounter for screening for diabetes mellitus, Z13.220 - Encounter for screening for lipoid disorders, Z71.89 - Other specified counseling
[2024-09-17 11:16] VITALS: BP 118/66; PULSE 80; O2SAT 96; BMI 23.5
== END 2024-09-17 12:09 | disposition home or self-care (01) ==
PROVIDERS: PCP Internal Medicine; Visit Provider Internal Medicine
DX: Z00.01 Encounter for general adult medical examination with abnormal findings (principal); J45.20 Mild intermittent asthma, uncomplicated; J47.9 Bronchiectasis, uncomplicated; J30.9 Allergic rhinitis, unspecified; Z71.89 Other specified counseling

== ENCOUNTER → 2024-09-17 11:02 | Outpatient (BNVA) | payer BC, SELFPAY | PROVIDERS: PCP Internal Medicine; Visit Provider Internal Medicine | DX: Z00.01 Encounter for general adult medical examination with abnormal findings (principal); J45.20 Mild intermittent asthma, uncomplicated; J47.9 Bronchiectasis, uncomplicated; J30.9 Allergic rhinitis, unspecified; Z71.89 Other specified counseling | CPT/HCPCS: 96127 ==

== ENCOUNTER 2024-12-26 15:39 | Outpatient (AMB) | payer BC, SELFPAY ==
[2024-12-26 15:49] VITALS: BP 94/60; PULSE 69; O2SAT 98; BMI 23.8
--- NOTE | 2024-12-26 15:49 | MHC.OFFVIS ---
Vital Signs 12/26/24 15:49 Height 5 ft 9 in Weight 160 lb 14.999 oz BMI 23.8 BP 94/60 Blood Pressure Location Lt brachial Position Sitting Pulse 69 Pulse Source Pulse Oximeter Pulse Oximetry (%) 98 Oxygen Delivery Method Room Air Intake Visit Reasons: asthma Intake Note: pt is here for follow up and cough is still there but not as bad, she is dealing with allergies. Machine Rebuilder Required: No Allergies Seasonal Allergies Allergy (Mild, Verified 12/26/24 16:06) mild Medication List - Last Reconciled 12/26/24 by Lucita Wong MD albuterol sulfate 90 mcg/actuation 2 puffs PO Q6H PRN 30 days albuterol sulfate 1.25 mg (3 mL) inhalation Q4-6H PRN fluticasone propion-salmeterol 250-50 mcg/dose (Advair Diskus) 1 inh inhalation BID 30 days loratadine (Claritin) 10 mg PO DAILY Do you need a note to return to daycare/school/sports/work: No HPI HPI asthma: Details: THIS 49 YEARS OLD FEMALE IS A CASE OF BRONCHIECTASIS/ COPD AND UPPER AIRWAY ALLERGIES. SHE IS PRONE TO HAVE RECURRENT RESPIRATORY INFECTIONS, FOR WHICH SHE ENDS UP TAKING AUGMENTIN EVERY FEW MONTHS. SINCE OCTOBER OF THIS YEAR SHE HAS BEEN FREE OF ACUTE INFECTION. . SHE IS VERY HAPPY ABOUT THIS SHE IS USUALLY BETTER IN SUMMER MONTHS THEN IN WINTER. SHE IS USING ADVAIR 250-51 INHALATION ONLY ONCE A DAY. COUGH IS MINIMAL, SHE DOES HAVE INTERMITTENT NASAL CONGESTION. [facility] Medical History Allergic rhinitis Bronchiectasis Varicose veins of both lower extremities with pain Mild intermittent asthma Surgical History No pertinent past surgical history Family History Father Substance use disorder Social History Housing: House Patient Tobacco Use Status: Never used Tobacco e-Cigarette/Vaping Use: Never Used service: No Current occupational status: employed Cognitive needs: No Hearing needs: No Vision needs: Yes Review of Systems Const All systems reviewed & are unremarkable except as noted in HPI and below Eyes Reports no additional complaints ENT Reports nasal congestion (Mild intermittent) Card Reports no additional complaints Resp Reports as per HPI GI Reports no additional complaints Reports no additional complaints Musc Reports no additional complaints Skin/Breast Reports system reviewed and no additional complaints, except as documented Neuro Reports no additional complaints Psych Reports no additional complaints Physical Exam Vital Signs: Last Vital Signs Pulse 69 12/26/24 15:49 BP 94/60 12/26/24 15:49 Pulse Ox 98 12/26/24 15:49 Oxygen Delivery Method Room Air 12/26/24 15:49 BMI result Body Mass Index 23.8 Const General: healthy appearing, comfortable, no acute distress, alert and awake Orientation/consciousness: patient oriented x3 HEENT Head: Yes normal to inspection General nose exam: No nasal polyps present and No nasal discharge present Face and sinus: Yes sinuses nontender Mouth: oropharynx normal Throat: Yes posterior oropharynx normal Eyes General: appearance normal, both eyes and all related structures Neck Neck: Yes normal visual inspection, Yes no lymphadenopathy, Yes trachea midline and Yes no JVD Thyroid: Thyroid normal Chest Chest palpation & inspection: normal inspection of the chest, normal palpation of entire chest wall and no tenderness Resp Other: Percussion note is hyper-resonant,. Breath sounds are normal and equal on both sides. No wheezes . SHE DOES HAVEA FEW INSPIRATORY CRACKLES OVER THE BASILAR AREAS. Especially over the right base. Effort & Inspection: normal respiratory effort Auscultation: clear to auscultation bilaterally Cardio Palpation: normal PMI Rate: regular rate Rhythm: regular rhythm Heart sounds: Gallop heart sound present and Murmur heart sound present Peripheral pulses: Peripheral pulses 2+ throughout GI Palpation (GI): Soft to palpation, nontender, No hepatosplenomegaly present and no masses Auscultation: normal bowel sounds Back/Spine/Pelvis Thoracic/Lumbar Spine: thoracic and lumbar spine normal to inspection Skin General skin exam: no rashes or lesions noted Neuro General: patient oriented x3 and no focal motor deficits Cranial nerves: Yes CN's II-XII intact bilaterally Extrem General: Yes normal to inspection, Yes no clubbing, cyanosis or edema and Yes no calf tenderness Psych Appearance: grossly normal and well kempt Mental Status: mental status grossly normal Speech and movement: Normal speech and movement present Assessment & Plan Assessment & Plan (1) Bronchiectasis: Comment: SHE DOES HAVE DIFFUSE CYLINDERICAL BRONCHIECTASIS, PREDOMINANTLY IN THE LOWER LOBES. THIS SEEMS TO BE THE MAIN REASON FOR CHRONIC BRONCHIAL ASTHMA AND RECURRENT RESPIRATORY INFECTIONS. SHE IS PRONE TO HAVE RESPIRATORY INFECTIONS SECONDARY TO HAEMOPHILUS INFLUENZAE, AND RESPONDS TO AUGMENTIN. THIS TIME SHE HAS HAD NO ACUTE INFECTION FOR THE PAST FEW MONTHS AND SHE IS EXCITED ABOUT THAT. Code(s): J47.9 - Bronchiectasis, uncomplicated Category: Medical Qualifiers: Bronchiectasis type: uncomplicated Qualified Code(s): J47.9 - Bronchiectasis, uncomplicated Plan: CONTINUE PROPER HYDRATION. MAY USE STEAM INHALATION 2 OR 3 TIMES A DAY NEEDED. WILL USE AUGMENTIN ONLY P.R.N.. (2) Mild intermittent asthma: Comment: LONGSTANDING HISTORY OF BRONCHIAL ASTHMA. SYMPTOMATICALLY WELL CONTROLLED AT THIS TIME. AND SHE IS USING ADVAIR ONLY ONCE A DAY. Code(s): J45.20 - Mild intermittent asthma, uncomplicated Category: Medical Plan: ADVAIR 250-51 INHALATION ONCE A DAY BUT IF SYMPTOMS INCREASE THEN SHE CAN GO UP TO TWICE A DAY. ALBUTEROL 1.25 MG IN THE NEBULIZER Q 6 HOURS P.R.N. OR ALBUTEROL HFA 2 PUFFS Q 6 HOURS P.R.N. (3) Allergic rhinitis: Comment: SHE HAS SEASONAL AND ENVIRONMENTAL ALLERGIES, AND SHE DOES GET NASAL CONGESTION WITH POSTNASAL DRIP OFF AND ON. AT PRESENT SHE DOES NOT HAVE ACTIVE NASAL CONGESTION POSTNASAL DRIP OR RHINORRHEA. Code(s): J30.9 - Allergic rhinitis, unspecified Category: Medical Qualifiers: Allergic rhinitis trigger: unspecified Allergic rhinitis seasonality: unspecified Qualified Code(s): J30.9 - Allergic rhinitis, unspecified Plan: MAY USE LORATADINE 10 MG ONCE A DAY P.R.N. Coding Level of Care Code Est Pt Level 3 (86798) Diagnoses Bronchiectasis without complication J47.9 Bronchiectasis type: uncomplicated Mild intermittent asthma J45.20 Allergic rhinitis, unspecified seasonality, unspecified trigger J30.9 Allergic rhinitis trigger: unspecified Allergic rhinitis seasonality: unspecified
== END 2024-12-26 16:06 | disposition home or self-care (01) ==
LOC: HO.HPS 15:39
PROVIDERS: PCP Internal Medicine; Visit Provider Internal Medicine
DX: J47.9 Bronchiectasis, uncomplicated (principal); J45.20 Mild intermittent asthma, uncomplicated; J30.9 Allergic rhinitis, unspecified
CPT/HCPCS: 99213

== ENCOUNTER 2025-06-26 15:54 | Outpatient (AMB) | payer BC, SELFPAY ==
[2025-06-26 16:01] VITALS: BP 110/80; PULSE 54; O2SAT 98; BMI 24.3
--- NOTE | 2025-06-26 16:01 | MHC.OFFVIS ---
Vital Signs 06/26/25 16:01 Height 5 ft 9 in Weight 164 lb 3.91 oz BMI 24.3 BP 110/80 Blood Pressure Location Lt brachial Position Sitting Pulse 54 Pulse Source Pulse Oximeter Pulse Oximetry (%) 98 Oxygen Delivery Method Room Air Intake Visit Reasons: asthma Intake Note: pt is here for follow up and states pretty good just allergies [employer] Project Manager Required: No Jockey'S Agent: Jockey'S Agent offered & declined Allergies Seasonal Allergies Allergy (Mild, Verified 06/26/25 16:11) mild Medication List - Last Reconciled 06/26/25 by Lucita Wong MD albuterol sulfate 90 mcg/actuation 2 puffs PO Q6H PRN 30 days albuterol sulfate 1.25 mg (3 mL) inhalation Q4-6H PRN fluticasone propion-salmeterol 250-50 mcg/dose (Advair Diskus) 1 inh inhalation BID 30 days loratadine (Claritin) 10 mg PO DAILY Do you need a note to return to daycare/school/sports/work: No HPI HPI asthma: Details: 49 years old female with bronchial asthma and bronchiectasis, comes for follow-up after 6 months. This year from the beginning she has had no recurrent respiratory infection. Bronchial asthma has remained very stable. She continues to use Wixela 250-50 1 inhalation b.i.d. and stays well. She usually has increased allergy symptoms in Winter, but so far doing okay. She is [employer]ONS[employer] . [facility] Medical History Allergic rhinitis Bronchiectasis Varicose veins of both lower extremities with pain Mild intermittent asthma Surgical History No pertinent past surgical history Family History Father Substance use disorder Social History Housing: House Patient Tobacco Use Status: Never used Tobacco e-Cigarette/Vaping Use: Never Used service: No Current occupational status: employed Cognitive needs: No Hearing needs: No Vision needs: Yes Review of Systems Const All systems reviewed & are unremarkable except as noted in HPI and below Eyes Reports no additional complaints ENT Reports nasal congestion (Mild intermittent) Card Reports no additional complaints Resp Reports as per HPI GI Reports no additional complaints Reports no additional complaints Musc Reports no additional complaints Skin/Breast Reports system reviewed and no additional complaints, except as documented Neuro Reports no additional complaints Psych Reports no additional complaints Physical Exam Vital Signs: Last Vital Signs Pulse 54 06/26/25 16:01 BP 110/80 06/26/25 16:01 Pulse Ox 98 06/26/25 16:01 Oxygen Delivery Method Room Air 06/26/25 16:01 BMI result Body Mass Index 24.3 Const General: healthy appearing, comfortable, no acute distress, alert and awake Orientation/consciousness: patient oriented x3 HEENT Head: Yes normal to inspection General nose exam: No nasal polyps present and No nasal discharge present Face and sinus: Yes sinuses nontender Mouth: oropharynx normal Throat: Yes posterior oropharynx normal Eyes General: appearance normal, both eyes and all related structures Neck Neck: Yes normal visual inspection, Yes no lymphadenopathy, Yes trachea midline and Yes no JVD Thyroid: Thyroid normal Chest Chest palpation & inspection: normal inspection of the chest, normal palpation of entire chest wall and no tenderness Resp Other: Percussion note is hyper-resonant,. Breath sounds are normal and equal on both sides. No wheezes . No crepitations are heard today. Effort & Inspection: normal respiratory effort Auscultation: clear to auscultation bilaterally Cardio Palpation: normal PMI Rate: regular rate Rhythm: regular rhythm Heart sounds: Gallop heart sound present and Murmur heart sound present Peripheral pulses: Peripheral pulses 2+ throughout GI Palpation (GI): Soft to palpation, nontender, No hepatosplenomegaly present and no masses Auscultation: normal bowel sounds Back/Spine/Pelvis Thoracic/Lumbar Spine: thoracic and lumbar spine normal to inspection Skin General skin exam: no rashes or lesions noted Neuro General: patient oriented x3 and no focal motor deficits Cranial nerves: Yes CN's II-XII intact bilaterally Extrem General: Yes normal to inspection, Yes no clubbing, cyanosis or edema and Yes no calf tenderness Psych Appearance: grossly normal and well kempt Mental Status: mental status grossly normal Speech and movement: Normal speech and movement present Assessment & Plan Assessment & Plan (1) Mild intermittent asthma: Comment: LONGSTANDING HISTORY OF BRONCHIAL ASTHMA. SYMPTOMATICALLY WELL CONTROLLED AT THIS TIME. AND SHE IS USING ADVAIR ONLY ONCE A DAY. INCREASES TO B.I.D. WHEN SYMPTOMS GET ANY WORSE Code(s): J45.20 - Mild intermittent asthma, uncomplicated Category: Medical Plan: CONTINUE THE SAME MEDICATION . USE ADVAIR 250-51 INHALATION B.I.D. BUT IF SYMPTOMS ARE UNDER CONTROL SHE CAN CUT IT DOWN TO ONCE A DAY (2) Bronchiectasis: Comment: SHE DOES HAVE DIFFUSE CYLINDERICAL BRONCHIECTASIS, PREDOMINANTLY IN THE LOWER LOBES. THIS SEEMS TO BE THE MAIN REASON FOR CHRONIC BRONCHIAL ASTHMA AND RECURRENT RESPIRATORY INFECTIONS. SHE IS PRONE TO HAVE RESPIRATORY INFECTIONS SECONDARY TO HAEMOPHILUS INFLUENZAE, AND RESPONDS TO AUGMENTIN. THIS TIME SHE HAS HAD NO ACUTE INFECTION FOR THE PAST FEW MONTHS AND SHE IS EXCITED ABOUT THAT. Code(s): J47.9 - Bronchiectasis, uncomplicated Category: Medical Qualifiers: Bronchiectasis type: uncomplicated Qualified Code(s): J47.9 - Bronchiectasis, uncomplicated Plan: STAY WELL, STAY AWAY FROM ANY SICK PERSONS. USE HUMIDIFICATION IN THE HOUSE DURING WINTER MONTHS. IF THERE IS AN ACTIVE INFECTION THEN SHE CAN BE TREATED WITH A COURSE OF AUGMENTIN (3) Allergic rhinitis: Comment: SHE HAS SEASONAL AND ENVIRONMENTAL ALLERGIES, AND SHE DOES GET NASAL CONGESTION WITH POSTNASAL DRIP OFF AND ON. AT PRESENT SHE DOES NOT HAVE ACTIVE NASAL CONGESTION POSTNASAL DRIP OR RHINORRHEA. Code(s): J30.9 - Allergic rhinitis, unspecified Category: Medical Qualifiers: Allergic rhinitis trigger: unspecified Allergic rhinitis seasonality: unspecified Qualified Code(s): J30.9 - Allergic rhinitis, unspecified Plan: OK TO USE CLARITIN 10 MG ONCE A DAY P.R.N. Coding Level of Care Code Est Pt Level 3 (56546) Diagnoses Mild intermittent asthma J45.20 Bronchiectasis without complication J47.9 Bronchiectasis type: uncomplicated Allergic rhinitis, unspecified seasonality, unspecified trigger J30.9 Allergic rhinitis trigger: unspecified Allergic rhinitis seasonality: unspecified
== END 2025-06-26 16:23 | disposition home or self-care (01) ==
LOC: HO.HPS 15:55
PROVIDERS: PCP Internal Medicine; Visit Provider Internal Medicine
DX: J45.20 Mild intermittent asthma, uncomplicated (principal); J47.9 Bronchiectasis, uncomplicated; J30.9 Allergic rhinitis, unspecified
CPT/HCPCS: 99213